=== PATIENT | female | born 1965 | race American Indian/Alaskan Native ===

== ENCOUNTER 2017-02-03 23:06 | Emergency (ER) | payer SELFPAY ==
[2017-02-04 00:24] LABS: Basophils % (Auto) 0.7 % (0.0-1.8); Eosinophils % (Auto) 3.5 % (0.0-4.3); Hematocrit 37.4 % (30.3-42.9); Hemoglobin 12.6 gm/dl (10.1-14.3); Mean Corpuscular HGB Conc 34 % (30-34); Mean Corpuscular Hemoglobin 28 pg (28-32); Mean Corpuscular Volume 83 fl (79-97); Platelet Count 257 K/mm3 (140-440); Red Blood Count 4.51 M/mm3 (3.65-5.03); Red Cell Distribution Width 14.2 % (13.2-15.2); White Blood Count 7.5 K/mm3 (4.5-11.0)
[2017-02-04 00:42] LABS: Anion Gap 15 mmol/L; Blood Urea Nitrogen 8 mg/dL (7-17); Calcium 8.8 mg/dL (8.4-10.2); Carbon Dioxide 28 mmol/L (22-30); Chloride 102.9 mmol/L (98-107); Glucose 92 mg/dL (65-100); Sodium 143 mmol/L (137-145)
[2017-02-04 00:46] LABS: Potassium 2.9 mmol/L (3.6-5.0)
[2017-02-04 01:03] LABS: Creatine Kinase 7315 units/L (30-135)
[2017-02-04 01:48] LABS: Bilirubin,Urine NEG (Negative); Blood,Urine SM (Negative); Ketones,Urine NEG (Negative); Leukocyte Esterase,Urine NEG (Negative); Nitrite,Urine NEG (Negative); Protein,Urine <15 mg/dL mg/dL (Negative); RBC,Urine < 1.0 /HPF (0.0-6.0); Urobilinogen,Urine < 2.0 mg/dL (<2.0)
[2017-02-04] MEDS ORDERED: K-DUR PO ONE (02:08)
[2017-02-04] MEDS ORDERED: KEPPRA 500 MG in D5W 100 ML IV ONE (03:58)
--- NOTE | 2017-02-04 04:06 | Emergency Department Report ---
HPI - General Chief Complaint: Seizure Time Seen by Provider: 02/04/17 02:08 - HPI HPI: patient ran out of seizure medication and had a seizure earlier today, no loss of bowel or urine, no chest pain or sob. ED Past Medical Hx - Past Medical History Previous Medical History?: Yes Hx Seizures: Yes Additional medical history: hole in heart - Surgical History Past Surgical History?: No - Social History Smoking Status: Current Some Day Smoker Substance Use Type: Alcohol, Marijuana - Medications Home Medications: Home Medications Medication Instructions Recorded Confirmed Last Taken Type Carvedilol [Coreg] 6.25 mg PO BID 02/04/17 02/04/17 02/02/17 History Lisinopril [Zestril TAB] 40 mg PO QDAY 02/04/17 02/04/17 02/02/17 History Loratadine [Claritin] 10 mg PO DAILY 02/04/17 02/04/17 02/02/17 History [place]-3 Fatty Acids/Fish Oil [Fish 1 each PO DAILY 02/04/17 02/04/17 02/02/17 History Oil 1,000 mg Softgel] Pravastatin Sodium [Pravastatin] 10 mg PO QHS 02/04/17 02/04/17 02/02/17 History amLODIPine [Norvasc] 5 mg PO DAILY 02/04/17 02/04/17 02/02/17 History levETIRAcetam [Keppra TAB] 750 mg PO BID #60 tablet 02/04/17 Unknown Rx ED Review of Systems ROS: Stated complaint: GENERAL ILLNESS Other details as noted in HPI Comment: All other systems reviewed and negative Gastrointestinal: as per HPI Neurological: other (seizures) Physical Exam - Physical Exam Vital Signs: Vital Signs 02/03/17 02/03/17 02/04/17 23:23 23:33 02:23 Temperature 97 F L 97.9 F Pulse Rate 68 68 68 Respiratory 18 18 14 Rate Blood Pressure 173/100 173/100 179/96 O2 Sat by Pulse 100 100 100 Oximetry 02/04/17 03:42 Temperature Pulse Rate 67 Respiratory 20 Rate Blood Pressure 169/79 O2 Sat by Pulse 100 Oximetry Physical Exam: GENERAL: The patient is well-developed well-nourished [] HEENT: Normocephalic. Atraumatic. Extraocular motions are intact. Patient has moist mucous membranes. NECK: Supple. No meningitic signs are noted. There is no adenopathy noted. CHEST/LUNGS: Clear to auscultation. There is no respiratory distress noted. HEART/CARDIOVASCULAR: Regular. There is no tachycardia. There is no gallop rub or murmur. ABDOMEN: Abdomen is soft, nontender. Patient has normal bowel sounds. There is no abdominal distention. SKIN: There is no rash. There is no edema. There is no diaphoresis. NEURO: The patient is awake, alert, and oriented. The patient is cooperative. The patient has no focal neurologic deficits. The patient has normal speech. Cranial nerves II through XII grossly intact, no drift. Moves all extremities well MUSCULOSKELETAL: There is no evidence of acute injury. ED Course Vital Signs 02/03/17 02/03/17 02/04/17 23:23 23:33 02:23 Temperature 97 F L 97.9 F Pulse Rate 68 68 68 Respiratory 18 18 14 Rate Blood Pressure 173/100 173/100 179/96 O2 Sat by Pulse 100 100 100 Oximetry 02/04/17 03:42 Temperature Pulse Rate 67 Respiratory 20 Rate Blood Pressure 169/79 O2 Sat by Pulse 100 Oximetry ED Medical Decision Making - Lab Data Result diagrams: 02/03/17 23:58 02/03/17 23:58 Critical care attestation.: If time is entered above; I have spent that time in minutes in the direct care of this critically ill patient, excluding procedure time. ED Disposition Clinical Impression: Seizure disorder Disposition: DC-01 TO HOME OR SELFCARE Is pt being admited?: No Does the pt Need Aspirin: No Condition: Stable Prescriptions: levETIRAcetam [Keppra TAB] 750 mg PO BID #60 tablet Referrals: DELMER MENDES MD [Primary Care Provider] - 3-5 Days PJ SOUZA MD [Staff Physician] - 3-5 Days
[2017-02-04 05:32] VITALS: BP 161/70
== END 2017-02-04 05:32 | disposition home or self-care (01) ==
LOC: ED 23:06
DX: G40.909 Epilepsy, unspecified, not intractable, without status epilepticus (principal); F17.210 Nicotine dependence, cigarettes, uncomplicated; F12.10 Cannabis abuse, uncomplicated
CPT/HCPCS: 36415; 80048; 81001; 82550; 82962; 84484; 84703; 85025; 93005; 93010; 96365; 99284; J1953

== ENCOUNTER 2017-02-06 08:01 | Emergency (ER) | payer SELFPAY ==
[2017-02-06] MEDS ORDERED: KEPPRA 1,000 MG/NS 0.75% 100ML 1,000 MG/100 ML BAG IV ONE (09:53)
[2017-02-06 11:03] LABS: Basophils % (Auto) 1.1 % (0.0-1.8); Eosinophils % (Auto) 4.3 % (0.0-4.3); Hematocrit 39.4 % (30.3-42.9); Mean Corpuscular HGB Conc 33 % (30-34); Mean Corpuscular Hemoglobin 28 pg (28-32); Mean Corpuscular Volume 84 fl (79-97); Platelet Count 210 K/mm3 (140-440); Red Cell Distribution Width 14.3 % (13.2-15.2); White Blood Count 5.5 K/mm3 (4.5-11.0)
[2017-02-06 11:28] LABS: Anion Gap 16 mmol/L; Blood Urea Nitrogen 7 mg/dL (7-17); Calcium 8.5 mg/dL (8.4-10.2); Carbon Dioxide 24 mmol/L (22-30); Chloride 103.1 mmol/L (98-107); Glucose 83 mg/dL (65-100); Potassium 3.9 mmol/L (3.6-5.0); Sodium 139 mmol/L (137-145)
--- NOTE | 2017-02-06 12:35 | Emergency Department Report ---
ED Seizure HPI - General Chief Complaint: Seizure Stated Complaint: SEIZURE Time Seen by Provider: 02/06/17 09:51 Source: patient, EMS Mode of arrival: Stretcher Limitations: No Limitations - History of Present Illness Initial Comments: 51 yo Female with a past medical history of asthma, hypertension, and seizures presented to the hospital status post seizure. Patient was found on the ground seizing our files. Patient was just here on February 04 was prescribed Keppra 750 twice a day. Patient did not fill the prescription because she did not have the money. She states she was receiving her medications for free when she goes back and forth to [place]. No physical complaints at this time. Patient is alert and oriented 3. No pulsatile laceration. - Related Data Home Medications Medication Instructions Recorded Confirmed Last Taken Carvedilol [Coreg] 6.25 mg PO BID 02/04/17 02/06/17 02/02/17 Lisinopril [Zestril TAB] 40 mg PO QDAY 02/04/17 02/06/17 02/02/17 Loratadine [Claritin] 10 mg PO DAILY 02/04/17 02/06/17 02/02/17 [place]-3 Fatty Acids/Fish Oil [Fish 1 each PO DAILY 02/04/17 02/06/17 02/02/17 Oil 1,000 mg Softgel] Pravastatin Sodium [Pravastatin] 10 mg PO QHS 02/04/17 02/06/17 02/02/17 amLODIPine [Norvasc] 5 mg PO DAILY 02/04/17 02/06/17 02/02/17 Previous Rx's Medication Instructions Recorded Last Taken Type RX: levETIRAcetam [Keppra TAB] 750 mg PO BID #60 tablet 02/04/17 Unknown Rx Allergies Allergy/AdvReac Type Severity Reaction Status Date / Time No Known Allergies Allergy Verified 02/06/17 08:54 ED Review of Systems ROS: Stated complaint: SEIZURE Other details as noted in HPI Comment: All other systems reviewed and negative Other: Constitutional: No fevers chills Eyes: No eye pain. Left subconjunctival hemorrhage from recent seizure. ENT: No ear pain or throat pain Neck: Denies pain Respiratory: Denies cough wheezing shortness of breath Cardiovascular: Denies chest pain, palpitations, syncope GI: Denies abdominal pain, nausea, vomiting, diarrhea : Denies dysuria Musculoskeletal: Denies back pain Skin: Denies rash, lesions, erythema Neurologic: Denies headache, numbness, weakness Psychiatric: Denies suicidal ideation, hallucinations ED Past Medical Hx - Past Medical History Previous Medical History?: Yes Hx Hypertension: Yes Hx Seizures: Yes Hx Asthma: Yes Additional medical history: hole in heart - Surgical History Past Surgical History?: No - Social History Smoking Status: Former Smoker Substance Use Type: Alcohol - Medications Home Medications: Home Medications Medication Instructions Recorded Confirmed Last Taken Type Carvedilol [Coreg] 6.25 mg PO BID 02/04/17 02/06/17 02/02/17 History Lisinopril [Zestril TAB] 40 mg PO QDAY 02/04/17 02/06/17 02/02/17 History Loratadine [Claritin] 10 mg PO DAILY 02/04/17 02/06/17 02/02/17 History [place]-3 Fatty Acids/Fish Oil [Fish 1 each PO DAILY 02/04/17 02/06/17 02/02/17 History Oil 1,000 mg Softgel] Pravastatin Sodium [Pravastatin] 10 mg PO QHS 02/04/17 02/06/17 02/02/17 History RX: levETIRAcetam [Keppra TAB] 750 mg PO BID #60 tablet 02/04/17 02/06/17 Unknown Rx amLODIPine [Norvasc] 5 mg PO DAILY 02/04/17 02/06/17 02/02/17 History ED Physical Exam - General Limitations: No Limitations - Other Other exam information: General: No limitations, patient is alert in no acute distress Head exam: Dark discoloration/bruising to left inferior orbital area from recent seizure/fall injury Eyes exam: Left eye lateral subconjunctival hemorrhage from recent previous seizure/fall injury. Pupils equally responsive to light ENT: Moist mucous membrane, normal oropharynx Neck exam: Normal inspection, full range of motion, no meningismus nontender Respiratory exam: Clear to auscultation bilateral, no wheezes, rales, crackles Cardiovascular: Normal rate and rhythm, normal heart sounds Abdomen: Soft, nondistended, and nontender, with normal bowel sounds, no rebound, or guarding Extremity: Full range of motion normal inspection no deformity Back: Normal Inspection, full range of motion, no tenderness Neurologic: Alert, oriented x3, cranial nerves intact, no motor or sensory deficit Psychiatric: normal affect, normal mood Skin: Warm, dry, intact ED Course Vital Signs 02/06/17 02/06/17 02/06/17 08:45 08:47 08:49 Temperature 97.8 F Pulse Rate 65 Respiratory 16 Rate Blood Pressure 162/92 162/92 Blood Pressure 162/92 [Left] O2 Sat by Pulse 99 100 99 Oximetry 02/06/17 02/06/17 02/06/17 08:51 08:53 08:55 Temperature Pulse Rate Respiratory Rate Blood Pressure 162/92 162/92 162/92 Blood Pressure [Left] O2 Sat by Pulse 100 100 99 Oximetry 02/06/17 02/06/17 02/06/17 08:57 08:59 09:00 Temperature Pulse Rate 63 Respiratory 14 Rate Blood Pressure 162/92 162/92 156/94 Blood Pressure [Left] O2 Sat by Pulse 98 99 99 Oximetry 02/06/17 02/06/17 02/06/17 09:01 09:03 09:05 Temperature Pulse Rate 60 56 L 63 Respiratory 17 13 16 Rate Blood Pressure 156/94 156/94 156/94 Blood Pressure [Left] O2 Sat by Pulse 100 98 97 Oximetry 02/06/17 02/06/17 02/06/17 09:07 09:09 09:11 Temperature Pulse Rate 61 61 61 Respiratory 15 15 16 Rate Blood Pressure 156/94 156/94 156/94 Blood Pressure [Left] O2 Sat by Pulse 97 98 97 Oximetry 02/06/17 02/06/17 02/06/17 09:13 09:15 09:17 Temperature Pulse Rate 61 61 61 Respiratory 15 14 16 Rate Blood Pressure 156/94 156/94 156/94 Blood Pressure [Left] O2 Sat by Pulse 97 98 99 Oximetry 02/06/17 02/06/17 02/06/17 09:19 09:21 09:23 Temperature Pulse Rate 61 54 L 56 L Respiratory 16 15 14 Rate Blood Pressure 156/94 156/94 156/94 Blood Pressure [Left] O2 Sat by Pulse 98 98 97 Oximetry 02/06/17 02/06/17 02/06/17 09:25 09:27 09:29 Temperature Pulse Rate 58 L 57 L 58 L Respiratory 17 17 16 Rate Blood Pressure 156/94 156/94 156/94 Blood Pressure [Left] O2 Sat by Pulse 97 97 97 Oximetry 02/06/17 02/06/17 02/06/17 09:31 09:33 09:35 Temperature Pulse Rate 58 L 58 L 58 L Respiratory 16 16 14 Rate Blood Pressure 156/94 156/94 156/94 Blood Pressure [Left] O2 Sat by Pulse 98 98 97 Oximetry 02/06/17 02/06/17 02/06/17 09:37 09:39 09:41 Temperature Pulse Rate 60 60 57 L Respiratory 16 16 16 Rate Blood Pressure 156/94 156/94 156/94 Blood Pressure [Left] O2 Sat by Pulse 97 97 97 Oximetry 02/06/17 02/06/17 02/06/17 09:43 09:45 09:47 Temperature Pulse Rate 57 L 58 L 59 L Respiratory 15 16 16 Rate Blood Pressure 156/94 156/94 156/94 Blood Pressure [Left] O2 Sat by Pulse 98 98 97 Oximetry 02/06/17 02/06/17 02/06/17 09:49 09:50 09:51 Temperature Pulse Rate 59 L 59 L 60 Respiratory 16 16 15 Rate Blood Pressure 156/94 156/94 Blood Pressure [Left] O2 Sat by Pulse 97 97 98 Oximetry 02/06/17 02/06/17 02/06/17 09:53 09:55 09:57 Temperature Pulse Rate 64 69 65 Respiratory 17 16 16 Rate Blood Pressure 156/94 156/94 156/94 Blood Pressure [Left] O2 Sat by Pulse 97 97 97 Oximetry 02/06/17 02/06/17 02/06/17 09:59 10:00 10:01 Temperature Pulse Rate 61 59 L 60 Respiratory 14 16 16 Rate Blood Pressure 156/94 143/85 143/85 Blood Pressure [Left] O2 Sat by Pulse 98 97 98 Oximetry 02/06/17 02/06/17 02/06/17 10:03 10:04 10:05 Temperature Pulse Rate 60 60 61 Respiratory 16 16 16 Rate Blood Pressure 143/85 143/85 143/85 Blood Pressure 156/94 [Left] O2 Sat by Pulse 99 98 97 Oximetry 02/06/17 02/06/17 02/06/17 10:07 10:09 10:11 Temperature Pulse Rate 65 70 66 Respiratory 12 17 14 Rate Blood Pressure 143/85 143/85 143/85 Blood Pressure [Left] O2 Sat by Pulse 97 98 98 Oximetry 02/06/17 10:13 Temperature Pulse Rate 64 Respiratory 15 Rate Blood Pressure 143/85 Blood Pressure [Left] O2 Sat by Pulse 98 Oximetry ED Medical Decision Making - Lab Data Result diagrams: 02/06/17 10:09 02/06/17 10:09 Lab Results 02/06/17 02/06/17 02/06/17 Range/Units 09:19 10:09 10:09 WBC 5.5 (4.5-11.0) K/mm3 RBC 4.70 (3.65-5.03) M/mm3 Hgb 13.0 (10.1-14.3) gm/dl Hct 39.4 (30.3-42.9) % MCV 84 (79-97) fl MCH 28 (28-32) pg MCHC 33 (30-34) % RDW 14.3 (13.2-15.2) % Plt Count 210 (140-440) K/mm3 Lymph % (Auto) 14.2 (13.4-35.0) % [place] % (Auto) 8.3 H (0.0-7.3) % Eos % (Auto) 4.3 (0.0-4.3) % Baso % (Auto) 1.1 (0.0-1.8) % Lymph # 0.8 L (1.2-5.4) K/mm3 [place] # 0.5 (0.0-0.8) K/mm3 Eos # 0.2 (0.0-0.4) K/mm3 Baso # 0.1 (0.0-0.1) K/mm3 Seg Neutrophils % 72.1 H (40.0-70.0) % Seg Neutrophils # 4.0 (1.8-7.7) K/mm3 Sodium 139 (137-145) mmol/L Potassium 3.9 D (3.6-5.0) mmol/L Chloride 103.1 (98-107) mmol/L Carbon Dioxide 24 (22-30) mmol/L Anion Gap 16 mmol/L BUN 7 (7-17) mg/dL Creatinine 0.5 L (0.7-1.2) mg/dL Estimated GFR > 60 ml/min BUN/Creatinine Ratio 14.00 % Glucose 83 (65-100) mg/dL POC Glucose 91 (70-105) Calcium 8.5 (8.4-10.2) mg/dL Magnesium 1.80 (1.7-2.3) mg/dL Critical Care Time: No Critical care attestation.: If time is entered above; I have spent that time in minutes in the direct care of this critically ill patient, excluding procedure time. ED Disposition Clinical Impression: Seizure disorder, Noncompliance with medication regimen Disposition: TO HOME OR SELFCARE Is pt being admited?: No Does the pt Need Aspirin: No Condition: Stable Instructions: Recurrent Seizures Adult (ED) Additional Instructions: Fill your Keppra Prescription. Use the discount coupon card provided to make a medication more affordable. Return is symptoms worsen. Follow up with either neurologist provider or neurologist of your choice. Referrals: ERIC BLANCHARD MD [Staff Physician] - 3-5 Days GEOFF RUEDA MD [Staff Physician] - 3-5 Days Time of Disposition: 12:41
[2017-02-06 12:46] VITALS: BP 130/82
== END 2017-02-06 12:58 | disposition home or self-care (01) ==
LOC: ED 08:01
DX: G40.909 Epilepsy, unspecified, not intractable, without status epilepticus (principal); Z91.14 Patient's other noncompliance with medication regimen; J45.909 Unspecified asthma, uncomplicated; Z87.891 Personal history of nicotine dependence
CPT/HCPCS: 36415; 80048; 82962; 83735; 85025; 96365; 99284; J1953

== ENCOUNTER 2017-07-20 10:39 | Emergency (ER) | payer OTHER ==
[2017-07-20] MEDS ORDERED: KEPPRA 1,000 MG/NS 0.75% 100ML 1,000 MG/100 ML BAG IV ONE (13:20)
[2017-07-20 14:26] LABS: BUN/Creatinine Ratio 22; Blood Urea Nitrogen 11 mg/dL (7-17); Calcium 8.5 mg/dL (8.4-10.2); Hemolysis Index 16
[2017-07-20 14:35] LABS: Basophils # (Auto) 0.1 K/mm3 (0.0-0.1); Basophils % (Auto) 1.4 % (0.0-1.8); Eosinophils # (Auto) 0.1 K/mm3 (0.0-0.4); Eosinophils % (Auto) 1.7 % (0.0-4.3); Hemoglobin 12.4 gm/dl (10.1-14.3); Lymphocytes # (Auto) 0.8 K/mm3 (1.2-5.4); Lymphocytes % (Auto) 15.4 % (13.4-35.0); Mean Corpuscular HGB Conc 33 % (30-34); Mean Corpuscular Hemoglobin 28 pg (28-32); Mean Corpuscular Volume 84 fl (79-97); Monocytes # (Auto) 0.3 K/mm3 (0.0-0.8); Monocytes % (Auto) 6.2 % (0.0-7.3); Platelet Count 292 K/mm3 (140-440); Red Blood Count 4.41 M/mm3 (3.65-5.03); Red Cell Distribution Width 14.3 % (13.2-15.2)
--- NOTE | 2017-07-20 14:52 | Emergency Department Report ---
ED General Adult HPI - General Chief complaint: Seizure Stated complaint: SEIZURE Time Seen by Provider: 07/20/17 13:13 Source: patient, EMS Mode of arrival: Stretcher Limitations: No Limitations - History of Present Illness Initial comments: The patient admits noncompliance with her Keppra. She has been out for some time. In fact she had another seizure 5 days ago but did not seek medical attention. She states that she still does have her high blood pressure medicine. She presents to the emergency department with a bottle of lisinopril and amlodipine. She had a single seizure prior to arrival. She reports that this did not result in injury. There's been no neurological change. She is still slightly drowsy but able to answer questions well. She denies any headache. -: Gradual Severity scale (0 -10): 0 Consistency: now resolved Improves with: none Worsens with: none Associated Symptoms: denies other symptoms Treatments Prior to Arrival: none - Related Data Home Medications Medication Instructions Recorded Confirmed Last Taken Carvedilol [Coreg] 6.25 mg PO BID 02/04/17 02/06/17 02/02/17 Loratadine [Claritin] 10 mg PO DAILY 02/04/17 02/06/17 02/02/17 [place]-3 Fatty Acids/Fish Oil [Fish 1 each PO DAILY 02/04/17 02/06/17 02/02/17 Oil 1,000 mg Softgel] Pravastatin Sodium [Pravastatin] 10 mg PO QHS 02/04/17 02/06/17 02/02/17 Previous Rx's Medication Instructions Recorded Last Taken Type Lisinopril [Zestril TAB] 40 mg PO QDAY #30 tablet 07/20/17 Unknown Rx amLODIPine [Norvasc] 5 mg PO DAILY #30 tablet 07/20/17 Unknown Rx levETIRAcetam [Keppra TAB] 750 mg PO BID #60 tablet 07/20/17 Unknown Rx Allergies Allergy/AdvReac Type Severity Reaction Status Date / Time No Known Allergies Allergy Verified 02/06/17 08:54 ED Review of Systems ROS: Stated complaint: SEIZURE Other details as noted in HPI Constitutional: denies: chills, fever Eyes: denies: eye pain, eye discharge, vision change ENT: denies: ear pain, throat pain Respiratory: denies: cough, shortness of breath, wheezing Cardiovascular: denies: chest pain, palpitations Endocrine: no symptoms reported Gastrointestinal: denies: abdominal pain, nausea, diarrhea Genitourinary: denies: urgency, dysuria, discharge Musculoskeletal: denies: back pain, joint swelling, arthralgia Skin: denies: rash, lesions Neurological: as per HPI. denies: headache, weakness Psychiatric: denies: anxiety, depression Hematological/Lymphatic: denies: easy bleeding, easy bruising ED Past Medical Hx - Past Medical History Previous Medical History?: Yes Hx Hypertension: Yes Hx Seizures: Yes Hx Asthma: Yes Additional medical history: hole in heart - Surgical History Past Surgical History?: No - Social History Smoking Status: Current Some Day Smoker Substance Use Type: Alcohol - Medications Home Medications: Home Medications Medication Instructions Recorded Confirmed Last Taken Type Carvedilol [Coreg] 6.25 mg PO BID 02/04/17 02/06/17 02/02/17 History Loratadine [Claritin] 10 mg PO DAILY 02/04/17 02/06/17 02/02/17 History [place]-3 Fatty Acids/Fish Oil [Fish 1 each PO DAILY 02/04/17 02/06/17 02/02/17 History Oil 1,000 mg Softgel] Pravastatin Sodium [Pravastatin] 10 mg PO QHS 02/04/17 02/06/17 02/02/17 History Lisinopril [Zestril TAB] 40 mg PO QDAY #30 tablet 07/20/17 Unknown Rx amLODIPine [Norvasc] 5 mg PO DAILY #30 tablet 07/20/17 Unknown Rx levETIRAcetam [Keppra TAB] 750 mg PO BID #60 tablet 07/20/17 Unknown Rx ED Physical Exam - General Limitations: No Limitations General appearance: alert, in no apparent distress - Head Head exam: Present: atraumatic, normocephalic - Eye Eye exam: Present: normal appearance, PERRL, EOMI. Absent: scleral icterus - ENT ENT exam: Present: mucous membranes moist - Neck Neck exam: Present: normal inspection - Respiratory Respiratory exam: Present: normal lung sounds bilaterally. Absent: respiratory distress - Cardiovascular Cardiovascular Exam: Present: regular rate, normal rhythm. Absent: systolic murmur, diastolic murmur, rubs, gallop - GI/Abdominal GI/Abdominal exam: Present: soft, normal bowel sounds. Absent: distended, tenderness, guarding, rebound, rigid - Extremities Exam Extremities exam: Present: normal inspection - Back Exam Back exam: Present: normal inspection - Neurological Exam Neurological exam: Present: alert, oriented X3, CN II-XII intact. Absent: motor sensory deficit - Psychiatric Psychiatric exam: Present: normal affect, normal mood - Skin Skin exam: Present: warm, dry, intact, normal color. Absent: rash ED Course Vital Signs 07/20/17 12:47 Temperature 98.1 F Pulse Rate 60 Respiratory 16 Rate Blood Pressure 160/92 O2 Sat by Pulse 100 Oximetry - Reevaluation(s) Reevaluation #1: Patient was loaded with a gram of Her. She is observed. She had no further seizure activity or signs of any neurological compromise. She is appropriate for outpatient management and follow-up. She'll be continued on her Keppra. 07/20/17 14:53 ED Medical Decision Making - Lab Data Result diagrams: 07/20/17 13:55 07/20/17 13:55 Laboratory Results - last 24 hr 07/20/17 07/20/17 13:55 13:55 WBC 5.5 RBC 4.41 Hgb 12.4 Hct 37.0 MCV 84 MCH 28 MCHC 33 RDW 14.3 Plt Count 292 Lymph % (Auto) 15.4 [place] % (Auto) 6.2 Eos % (Auto) 1.7 Baso % (Auto) 1.4 Lymph # 0.8 L [place] # 0.3 Eos # 0.1 Baso # 0.1 Seg Neutrophils % 75.3 H Seg Neutrophils # 4.1 Sodium 139 Potassium 4.1 Chloride 103.1 Carbon Dioxide 22 Anion Gap 18 BUN 11 Creatinine 0.5 L Estimated GFR > 60 BUN/Creatinine Ratio 22 Glucose 73 Calcium 8.5 Critical care attestation.: If time is entered above; I have spent that time in minutes in the direct care of this critically ill patient, excluding procedure time. ED Disposition Clinical Impression: Seizure, Seizure disorder, Essential hypertension Disposition: - TO HOME OR SELFCARE Is pt being admited?: No Does the pt Need Aspirin: No Condition: Stable Instructions: Epilepsy (ED), Hypertension (ED) Additional Instructions: Do not drive. Rx Keppra. Follow-up on your high blood pressure and your seizure disorder. I give you the information about a local clinic and neurologist. Prescriptions: amLODIPine [Norvasc] 5 mg PO DAILY #30 tablet levETIRAcetam [Keppra TAB] 750 mg PO BID #60 tablet Lisinopril [Zestril TAB] 40 mg PO QDAY #30 tablet Referrals: PRIMARY CARE, [Primary Care Provider] - 3-5 Days GEOFF RUEDA MD [Staff Physician] - 3-5 Days [facility] [Provider Group] - 3-5 Days Time of Disposition: 14:55
[2017-07-20 16:15] VITALS: BP 187/89
== END 2017-07-20 16:16 | disposition home or self-care (01) ==
LOC: ED 10:39
DX: G40.909 Epilepsy, unspecified, not intractable, without status epilepticus (principal); I10 Essential (primary) hypertension
CPT/HCPCS: 36415; 80048; 85025; 96374; 99284; J1953

== ENCOUNTER 2017-09-01 19:41 | Emergency (ER) | payer SELFPAY ==
[2017-09-01 19:57] VITALS: BP 162/80
[2017-09-01] MEDS ORDERED: KEPPRA 1,000 MG/NS 0.75% 100ML 1,000 MG/100 ML BAG IV ONE (20:09)
[2017-09-01 20:38] LABS: Basophils % (Auto) 0.4 % (0.0-1.8); Eosinophils # (Auto) 0.1 K/mm3 (0.0-0.4); Eosinophils % (Auto) 0.7 % (0.0-4.3); Hematocrit 41.4 % (30.3-42.9); Hemoglobin 13.9 gm/dl (10.1-14.3); Lymphocytes # (Auto) 1.1 K/mm3 (1.2-5.4); Lymphocytes % (Auto) 9.1 % (13.4-35.0); Mean Corpuscular HGB Conc 34 % (30-34); Mean Corpuscular Hemoglobin 28 pg (28-32); Mean Corpuscular Volume 83 fl (79-97); Monocytes # (Auto) 0.4 K/mm3 (0.0-0.8); Monocytes % (Auto) 3.1 % (0.0-7.3); Platelet Count 320 K/mm3 (140-440); Red Cell Distribution Width 14.6 % (13.2-15.2)
[2017-09-01 20:50] LABS: BUN/Creatinine Ratio 13; Blood Urea Nitrogen 9 mg/dL (7-17); Calcium 8.6 mg/dL (8.4-10.2); Hemolysis Index 14
[2017-09-01] MEDS ORDERED: K-DUR PO ONE (21:22)
--- NOTE | 2017-09-01 21:22 | Emergency Department Report ---
ED Seizure HPI - General Chief Complaint: Seizure Stated Complaint: SEIZURE Time Seen by Provider: 09/01/17 20:09 Source: patient Mode of arrival: Stretcher Limitations: No Limitations - History of Present Illness Initial Comments: 52-year-old female with a past medical history seizures and hypertension presents to the hospital status post seizure while riding the bus. She had no preceding symptoms. Woke up in route to the hospital. Denies tongue laceration or urinary incontinence. No pain reported. Patient's been noncompliant with her for the past day and a half. She has refills or prescriptions but is waiting to collect enough money to be able to afford her prescriptions. - Related Data Home Medications Medication Instructions Recorded Confirmed Last Taken Carvedilol [Coreg] 6.25 mg PO BID 02/04/17 02/06/17 02/02/17 Loratadine [Claritin] 10 mg PO DAILY 02/04/17 02/06/17 02/02/17 Stebbins-3 Fatty Acids/Fish Oil [Fish 1 each PO DAILY 02/04/17 02/06/17 02/02/17 Oil 1,000 mg Softgel] Pravastatin Sodium [Pravastatin] 10 mg PO QHS 02/04/17 02/06/17 02/02/17 Previous Rx's Medication Instructions Recorded Last Taken Type Lisinopril [Zestril TAB] 40 mg PO QDAY #30 tablet 07/20/17 Unknown Rx amLODIPine [Norvasc] 5 mg PO DAILY #30 tablet 07/20/17 Unknown Rx levETIRAcetam [Keppra TAB] 750 mg PO BID #60 tablet 09/01/17 Unknown Rx Allergies Allergy/AdvReac Type Severity Reaction Status Date / Time No Known Allergies Allergy Verified 02/06/17 08:54 ED Review of Systems ROS: Stated complaint: SEIZURE Other details as noted in HPI Comment: All other systems reviewed and negative ED Past Medical Hx - Past Medical History Hx Hypertension: Yes Hx Seizures: Yes Hx Asthma: Yes Additional medical history: hole in heart - Surgical History Past Surgical History?: No - Social History Smoking Status: Current Some Day Smoker Substance Use Type: Alcohol, Marijuana - Medications Home Medications: Home Medications Medication Instructions Recorded Confirmed Last Taken Type Carvedilol [Coreg] 6.25 mg PO BID 02/04/17 02/06/17 02/02/17 History Loratadine [Claritin] 10 mg PO DAILY 02/04/17 02/06/17 02/02/17 History Stebbins-3 Fatty Acids/Fish Oil [Fish 1 each PO DAILY 02/04/17 02/06/17 02/02/17 History Oil 1,000 mg Softgel] Pravastatin Sodium [Pravastatin] 10 mg PO QHS 02/04/17 02/06/17 02/02/17 History Lisinopril [Zestril TAB] 40 mg PO QDAY #30 tablet 07/20/17 Unknown Rx amLODIPine [Norvasc] 5 mg PO DAILY #30 tablet 07/20/17 Unknown Rx levETIRAcetam [Keppra TAB] 750 mg PO BID #60 tablet 09/01/17 Unknown Rx ED Physical Exam - General Limitations: No Limitations - Other Other exam information: General: No limitations, patient is alert in no acute distress Head exam: Atraumatic, normocephalic Eyes exam: Normal appearance, pupils equal reactive to light, extraocular movements intact ENT: Moist mucous membrane, normal oropharynx Neck exam: Normal inspection, full range of motion, no meningismus nontender Respiratory exam: Clear to auscultation bilateral, no wheezes, rales, crackles Cardiovascular: Normal rate and rhythm, normal heart sounds Abdomen: Soft, nondistended, and nontender, with normal bowel sounds, no rebound, or guarding Extremity: Full range of motion normal inspection no deformity Back: Normal Inspection, full range of motion, no tenderness Neurologic: Alert, oriented x3, cranial nerves intact, no motor or sensory deficit Psychiatric: normal affect, normal mood Skin: Warm, dry, intact ED Course Vital Signs 09/01/17 19:53 Temperature 97.8 F Pulse Rate 64 Respiratory 16 Rate Blood Pressure 162/80 O2 Sat by Pulse 96 Oximetry ED Medical Decision Making - Lab Data Result diagrams: 09/01/17 20:20 09/01/17 20:20 Lab Results 09/01/17 09/01/17 Range/Units 20:20 20:20 WBC 12.6 H (4.5-11.0) K/mm3 RBC 5.00 (3.65-5.03) M/mm3 Hgb 13.9 (10.1-14.3) gm/dl Hct 41.4 (30.3-42.9) % MCV 83 (79-97) fl MCH 28 (28-32) pg MCHC 34 (30-34) % RDW 14.6 (13.2-15.2) % Plt Count 320 (140-440) K/mm3 Lymph % (Auto) 9.1 L (13.4-35.0) % [place] % (Auto) 3.1 (0.0-7.3) % Eos % (Auto) 0.7 (0.0-4.3) % Baso % (Auto) 0.4 (0.0-1.8) % Lymph # 1.1 L (1.2-5.4) K/mm3 [place] # 0.4 (0.0-0.8) K/mm3 Eos # 0.1 (0.0-0.4) K/mm3 Baso # 0.0 (0.0-0.1) K/mm3 Seg Neutrophils % 86.7 H (40.0-70.0) % Seg Neutrophils # 10.9 H (1.8-7.7) K/mm3 Sodium 140 (137-145) mmol/L Potassium 3.4 L (3.6-5.0) mmol/L Chloride 99.5 (98-107) mmol/L Carbon Dioxide 24 (22-30) mmol/L Anion Gap 20 mmol/L BUN 9 (7-17) mg/dL Creatinine 0.7 (0.7-1.2) mg/dL Estimated GFR > 60 ml/min BUN/Creatinine Ratio 13 % Glucose 77 (65-100) mg/dL Calcium 8.6 (8.4-10.2) mg/dL Magnesium 2.10 (1.7-2.3) mg/dL - Medical Decision Making Patient's seizure is likely secondary to medication noncompliance. Patient loaded with IV Keppra 1 g. No further seizure activity. Potassium provided for mild hypokalemia. Patient is in information for [employer] [facility] website and a list of more affordable pricing for her medication. - Differential Diagnosis breakthrough seizure, medication noncompliance, electrolyte abnormality Critical Care Time: No Critical care attestation.: If time is entered above; I have spent that time in minutes in the direct care of this critically ill patient, excluding procedure time. ED Disposition Clinical Impression: Seizure, Noncompliance with medication regimen, Hypokalemia, HTN (hypertension) Disposition: DC- TO HOME OR SELFCARE Is pt being admited?: No Does the pt Need Aspirin: No Condition: Stable Instructions: Epilepsy (ED), Hypertension (ED) Additional Instructions: Taking her medication as prescribed. Use the good Rx website/kulwinder/card to make your medication more affordable. Return if symptoms worsen Prescriptions: levETIRAcetam [Keppra TAB] 750 mg PO BID #60 tablet Referrals: EMERALD ISAAC MD [Primary Care Provider] - 3-5 Days [facility] [Provider Group] - 3-5 Days Time of Disposition: 21:25
== END 2017-09-01 21:37 | disposition home or self-care (01) ==
LOC: ED 19:41
DX: R56.9 Unspecified convulsions (principal); E87.6 Hypokalemia; I10 Essential (primary) hypertension; F17.200 Nicotine dependence, unspecified, uncomplicated; F12.10 Cannabis abuse, uncomplicated
CPT/HCPCS: 36415; 80048; 83735; 85025; 96374; 99284; J1953

== ENCOUNTER 2017-09-02 01:37 | Emergency (ER) | payer SELFPAY ==
[2017-09-02] MEDS ORDERED: TYLENOL PO ONE (02:06)
--- NOTE | 2017-09-02 03:22 | Cat Scan Report ---
FINAL REPORT PROCEDURE: CT HEAD/BRAIN WO CON TECHNIQUE: Computerized tomography of the head was performed without contrast material. HISTORY: headache COMPARISON: No prior studies are available for comparison. FINDINGS: Skull and scalp: Normal. Paranasal sinuses: Normal. Ventricles and subarachnoid spaces: Normal. Cerebrum: No evidence of hemorrhage, acute infarction or mass . Cerebellum and brainstem: No evidence of hemorrhage, acute infarction or mass. Vasculature: Normal. Comments: None. IMPRESSION: There is no evidence of an acute intracranial process
--- NOTE | 2017-09-02 04:57 | Emergency Department Report ---
ED Headache HPI - General Chief Complaint: Headache Stated Complaint: HEADACHE Time Seen by Provider: 09/02/17 04:54 Source: patient Exam Limitations: no limitations - History of Present Illness Initial Comments: Patient here reports that she is having an headache and back and neck pain. She says she was here earlier today after having a seizure in the [employer] and it took her by ambulance here in she woke up when she got into the emergency room and reported that she has a seizure. Patient has been referred to neurologist after being diagnosed with seizure and placed on Keppra and she said that she keeps losing the papers that she has not seen a neurologist. She said that she was never diagnosed with seizure by a neurologist that she doesn' t have any history of head injury. She has a history of high cholesterol, high blood pressure and asthma. Patient said that she doesn't need refill on medicine because she had a prescription she does have to go to [facility] to get them filled. Patient reports that she is homeless. Pain is 6 out of 10 to head neck and upper back. Denies any nausea or vomiting. Denies any cuts or bruises to her skin. Headache is located frontally. She says she doesn't remember if she hit her head. Headache comes and goes and nothing makes it better and nothing makes it worse. She said she hasn't taken any medication for headache. She did not mention headache or neck or back pain while she was in the emergency room on her first visit today. Note from today reflect patient had seizure and came by ambulance. Also note says patient was given prescriptions for Keflex and that she is noncompliant with medication and treatment plan. Timing/Duration: 4-6 hours, waxing and waning Quality: moderate (6/10), achy Head Injury Location: frontal Recent Head Trauma: occasional headaches Modifying Factors: improves with: rest Associated Symptoms: seizures (patient had episode of seizure on [employer] today and was seen in the emergency room earlier for seizure.), other (neck pain and upper back pain). denies: confusion, fatigue, facial pain, fever/ chills, flushing, loss of consciousness, nasal congestion, nasal drainage, numbness in legs/feet, rash, sinus infection, stiff neck, vision changes, weakness Allergies/Adverse Reactions: Allergies No Known Allergies Allergy (Verified 02/06/17 08:54) Home Medications: Ambulatory Orders Carvedilol [Coreg] 6.25 mg PO BID 02/04/17 Loratadine [Claritin] 10 mg PO DAILY 02/04/17 Rock-3 Fatty Acids/Fish Oil [Fish Oil 1,000 mg Softgel] 1 each PO DAILY Pravastatin Sodium [Pravastatin] 10 mg PO QHS 02/04/17 Lisinopril [Zestril TAB] 40 mg PO QDAY #30 tablet 07/20/17 amLODIPine [Norvasc] 5 mg PO DAILY #30 tablet 07/20/17 levETIRAcetam [Keppra TAB] 750 mg PO BID #60 tablet 09/01/17 Ibuprofen [Motrin] 600 mg PO Q8H PRN #9 tablet 09/02/17 ED Review of Systems ROS: Stated complaint: HEADACHE Other details as noted in HPI Comment: All other systems reviewed and negative Constitutional: no symptoms reported Eyes: denies: eye pain, eye discharge, vision change ENT: denies: ear pain, throat pain, dental pain, epistaxis, congestion Respiratory: no symptoms reported Cardiovascular: denies: chest pain, palpitations, dyspnea on exertion, orthopnea , edema, syncope, paroxysmal nocturnal dyspnea Gastrointestinal: denies: abdominal pain, nausea, vomiting, diarrhea, constipation, hematemesis, melena, hematochezia Genitourinary: denies: dysuria, hematuria Musculoskeletal: back pain. denies: joint swelling, arthralgia, myalgia Skin: denies: rash Neurological: headache. denies: weakness, numbness, paresthesias, confusion, abnormal gait, vertigo ED Past Medical Hx - Past Medical History Previous Medical History?: Yes Hx Hypertension: Yes Hx Seizures: Yes Hx Asthma: Yes Additional medical history: hole in heart - Surgical History Past Surgical History?: Yes - Family History Family history: hypertension - Social History Smoking Status: Never Smoker Substance Use Type: Marijuana - Medications Home Medications: Home Medications Medication Instructions Recorded Confirmed Last Taken Type Carvedilol [Coreg] 6.25 mg PO BID 02/04/17 02/06/17 02/02/17 History Loratadine [Claritin] 10 mg PO DAILY 02/04/17 02/06/17 02/02/17 History Rock-3 Fatty Acids/Fish Oil [Fish 1 each PO DAILY 08/02/06/17 02/02/17 History Oil 1,000 mg Softgel] Pravastatin Sodium [Pravastatin] 10 mg PO QHS 02/04/17 02/06/17 02/02/17 History Lisinopril [Zestril TAB] 40 mg PO QDAY #30 tablet 07/20/17 Unknown Rx amLODIPine [Norvasc] 5 mg PO DAILY #30 tablet 07/20/17 Unknown Rx levETIRAcetam [Keppra TAB] 750 mg PO BID #60 tablet 09/01/17 Unknown Rx Ibuprofen [Motrin] 600 mg PO Q8H PRN #9 tablet 09/02/17 Unknown Rx ED Physical Exam - General Limitations: No Limitations General appearance: alert, in no apparent distress - Head Head exam: Present: atraumatic, normocephalic, normal inspection - Expanded Head Exam Expanded Head exam: Absent: laceration, abrasion, contusion, hematoma, racoon eyes, cruz's sign, general tenderness, tenderness of temporal artery, CSF rhinorrhea , CSF otorrhea - Eye Eye exam: Present: normal appearance, PERRL, EOMI. Absent: nystagmus, periorbital swelling, periorbital tenderness Pupils: Present: normal accommodation - ENT ENT exam: Present: normal exam, normal orophraynx, mucous membranes moist - Neck Neck exam: Present: normal inspection, full ROM, other (no C-spine tenderness). Absent: tenderness, meningismus, lymphadenopathy, thyromegaly - Expanded Neck Exam Expanded Neck exam: Absent: tenderness, midline deformity, anterior neck swelling, thyroid mass, carotid bruit, tracheal deviation - Respiratory Respiratory exam: Present: normal lung sounds bilaterally. Absent: respiratory distress, chest wall tenderness - Cardiovascular Cardiovascular Exam: Present: regular rate, normal rhythm, normal heart sounds - GI/Abdominal GI/Abdominal exam: Present: soft, normal bowel sounds. Absent: distended, tenderness, guarding, rebound, rigid, organomegaly, mass, bruit, pulsatile mass , hernia - Extremities Exam Extremities exam: Present: normal inspection, full ROM, normal capillary refill , other (no clubbing, cyanosis or edema. +2 pulses all extremities. No neurovascular compromise. +5/5 strength in all extremities. No laceration, contusion or abrasion.). Absent: tenderness, pedal edema, joint swelling, calf tenderness - Back Exam Back exam: Present: normal inspection, full ROM, other (patient ambulate without any difficulties). Absent: tenderness, CVA tenderness (R), CVA tenderness (L), muscle spasm, paraspinal tenderness, vertebral tenderness, rash noted - Expanded Back Exam Expanded Back exam: Absent: saddle anesthesia Back exam: Negative Straight Leg Raising: Left, Right - Neurological Exam Neurological exam: Present: alert, oriented X3, normal gait, reflexes normal. Absent: motor sensory deficit - Expanded Neurological Exam Expanded Neurological exam: Absent: innattentive, memory loss-remote event, memory loss- recent event, ataxia, receptive aphasia, expressive aphasia, total aphasia, tremor, protecting the airway Patient oriented to: Present: person, place, time Speech: Present: fluid speech Cranial nerves: EOM's Intact: Normal, Gag Reflex: Normal, Tongue Deviation: Normal, Nystagmus: Normal, Facial Sensation: Normal Cerebellar function: Finger to Nose: Normal, Romberg: Normal Upper motor neuron: Pronator Drift: Normal, Sensory Extinction: Normal Sensory exam: Upper Extremity Light Touch: Normal, Upper Extremity Temperature: Normal, UE 2 Point Discrimination: Normal, Lower Extremity Light Touch: Normal, Lower Extremity Pin Prick: Normal, LE 2 Point Discrimination: Normal Motor strength exam: RUE: 5, LUE: 5, RLE: 5, LLE: 5 DTR: bicep (R): 2+, bicep (L): 2+, tricep (R): 2+, tricep (L): 2+, knee (R): 2+ , knee (L): 2+, ankle (R): 2+, ankle (L): 2+ Best Eye Response ([place]): (4) open spontaneously Best Motor Response ([place]): (6) obeys commands Best Verbal Response ([place]): (5) oriented [place] Total: 15 - Psychiatric Psychiatric exam: Present: normal affect, normal mood - Skin Skin exam: Present: warm, dry, intact, normal color. Absent: rash ED Course Vital Signs 09/02/17 02:05 Temperature 98.5 F Pulse Rate 84 Respiratory 20 Rate Blood Pressure 141/91 [Left] O2 Sat by Pulse 98 Oximetry - Reevaluation(s) Reevaluation #1: 09/02/17 06:22 She given Tylenol 650 mg in the ER for headache. She voiced relief of headache. ED Medical Decision Making - Radiology Data Radiology results: report reviewed CT scan of the head without contrast reveals no acute findings. - Medical Decision Making ED course: Patient's second visit within 24 hours for 2 different complaints. Initial visit today was 4 seizure in [facility] and she was seen by Dr. Parnell and released and also given prescription for Keppra which she takes for seizure. Patient was also referred to neurologist in the past and she says she didn't go because she keeps losing the paper. Patient reports that she is homeless. She said after she was discharged later on she started feeling upper back pain and neck pain with headache and she was concerned so she returned to the hospital to get rechecked. CT scan of the head revealed no acute intracranial processes. This was discussed patient. She was given Tylenol 650 mg her pain was resolved her pain. Patient is neurologically intact with normal back and neck exam. It was discussed and discharge report earlier today the patient is noncompliant with medication and treatment plan. I asked patient if she needed prescription for her lisinopril and other medication and she says she has prescription she does this about a [facility] to get them filled. I discussed the patient that she is never been diagnosed by a neurologist with seizure and she does not have any history of head injury or abnormality so she will need to follow-up with neurologists and also at some [facility] as she does not have a primary care doctor. She was given prescription junk car to help with prescriptions while she was here today. Patient's evening drinking well and discharged home in stable condition with prescription for Motrin. Lab work from today did not show any critical value some values and her CBC was slightly elevated to include white blood cell. Chemistries stable except for some slight abnormalities which were not critical. Patient drank several cups of juice in emergency room . Critical care attestation.: If time is entered above; I have spent that time in minutes in the direct care of this critically ill patient, excluding procedure time. ED Disposition Clinical Impression: Noncompliance with medication regimen, Musculoskeletal pain, Pain, upper back, Homelessness Headache Qualifiers: Headache type: unspecified Headache chronicity pattern: episodic headache Intractability: not intractable Qualified Code(s): R51 - Headache Disposition: DC-01 TO HOME OR SELFCARE Is pt being admited?: No Does the pt Need Aspirin: No Condition: Stable Instructions: Acute Headache (ED), Musculoskeletal Pain (ED) Additional Instructions: Please follow up with neurologist as recommended and referred to discharge instruction paperwork for details on phone number and address. Please take him medication as prescribed. Please follow up at [facility]. Call this morning to schedule an appointment for primary care visits for a new patient for management of chronic medical problems Take Motrin as prescribed and this will help with musculoskeletal pain. Prescriptions: Ibuprofen [Motrin] 600 mg PO Q8H PRN #9 tablet PRN Reason: Pain Referrals: [facility] [Outside] - 09/03/17 ERIC BLANCHARD MD [Staff Physician] - 09/03/17 [facility] [Outside] - 3-5 Days [facility] [Outside] - 3-5 Days [facility] [Outside] - 3-5 Days [facility] [Outside] - 3-5 Days
[2017-09-02 04:59] VITALS: BP 141/91
== END 2017-09-02 06:35 | disposition home or self-care (01) ==
LOC: ED 01:37
DX: M79.1 Myalgia (principal); M54.9 Dorsalgia, unspecified; R51 Headache; I10 Essential (primary) hypertension; J45.909 Unspecified asthma, uncomplicated; F12.10 Cannabis abuse, uncomplicated; R56.9 Unspecified convulsions; Z59.0 Homelessness; Z91.14 Patient's other noncompliance with medication regimen
CPT/HCPCS: 70450; 99283

== ENCOUNTER 2017-11-19 23:54 | Emergency (ER) | payer SELFPAY ==
[2017-11-20 04:08] LABS: Basophils # (Auto) 0.1 K/mm3 (0.0-0.1); Basophils % (Auto) 0.9 % (0.0-1.8); Eosinophils # (Auto) 0.3 K/mm3 (0.0-0.4); Eosinophils % (Auto) 3.3 % (0.0-4.3); Hematocrit 38.3 % (30.3-42.9); Hemoglobin 12.9 gm/dl (10.1-14.3); Lymphocytes # (Auto) 1.7 K/mm3 (1.2-5.4); Lymphocytes % (Auto) 21.8 % (13.4-35.0); Mean Corpuscular HGB Conc 34 % (30-34); Mean Corpuscular Hemoglobin 28 pg (28-32); Mean Corpuscular Volume 84 fl (79-97); Monocytes # (Auto) 0.7 K/mm3 (0.0-0.8); Monocytes % (Auto) 8.3 % (0.0-7.3); Platelet Count 265 K/mm3 (140-440); Red Blood Count 4.58 M/mm3 (3.65-5.03); Red Cell Distribution Width 14.7 % (13.2-15.2)
[2017-11-20 04:54] LABS: Alanine Aminotransferase 11 units/L (7-56); Albumin 4.1 g/dL (3.9-5); BUN/Creatinine Ratio 10; Blood Urea Nitrogen 7 mg/dL (7-17); Calcium 8.7 mg/dL (8.4-10.2); Hemolysis Index 32
[2017-11-20] MEDS ORDERED: TYLENOL PO ONE (12:48)
[2017-11-20] MEDS ORDERED: KEPPRA PO ONE (12:48)
--- NOTE | 2017-11-20 12:50 | Emergency Department Report ---
ED General Adult HPI - General Chief complaint: Seizure Stated complaint: SEIZURE Time Seen by Provider: 11/20/17 12:34 Source: patient, RN notes reviewed Mode of arrival: Ambulatory Limitations: No Limitations - History of Present Illness Initial comments: This is a 52-year-old female, known to this provider previously, past medical history includes seizures, hypertension, high cholesterol. Presents to the ER with a complaint of 2 complaints. Her first complaint is breakthrough seizure. She was found on the floor by family earlier on today. She thinks that she had a seizure. She reports sporadic compliance with her Keppra medication. She denies headache, neck pain, abdominal pain, patient denies focal extremity weakness or numbness, but admits to dysuria. She also reports central left- sided chest pressure which is intermittent, does not radiate anywhere, and has no exacerbating or relieving factors. She denies nausea and vomiting, and she denies issues with her breathing or shortness of breath. She denies DVT, pulmonary embolus risk factors, and she reports no recent cardiac risk stratification. -: Gradual Location: chest Severity scale (0 -10): 5 Consistency: intermittent Improves with: none Worsens with: none Associated Symptoms: confusion, chest pain, seizure, syncope (versus seizure). denies: cough, diaphoresis, fever/chills - Related Data Home Medications Medication Instructions Recorded Confirmed Last Taken Carvedilol [Coreg] 6.25 mg PO BID 02/04/17 02/06/17 02/02/17 Loratadine [Claritin] 10 mg PO DAILY 02/04/17 02/06/17 02/02/17 [place]-3 Fatty Acids/Fish Oil [Fish 1 each PO DAILY 02/04/17 02/06/17 02/02/17 Oil 1,000 mg Softgel] Pravastatin Sodium [Pravastatin] 10 mg PO QHS 02/04/17 02/06/17 02/02/17 Previous Rx's Medication Instructions Recorded Last Taken Type Lisinopril [Zestril TAB] 40 mg PO QDAY #30 tablet 07/20/17 Unknown Rx amLODIPine [Norvasc] 5 mg PO DAILY #30 tablet 07/20/17 Unknown Rx levETIRAcetam [Keppra TAB] 750 mg PO BID #60 tablet 09/01/17 Unknown Rx Ibuprofen [Motrin] 600 mg PO Q8H PRN #9 tablet 09/02/17 Unknown Rx Allergies Allergy/AdvReac Type Severity Reaction Status Date / Time No Known Allergies Allergy Verified 02/06/17 08:54 ED Review of Systems ROS: Stated complaint: SEIZURE Other details as noted in HPI Constitutional: denies: fever Eyes: denies: eye discharge ENT: denies: hearing loss Respiratory: denies: cough Cardiovascular: chest pain, syncope Gastrointestinal: denies: abdominal pain Genitourinary: dysuria Neurological: other (seizure) ED Past Medical Hx - Past Medical History Hx Hypertension: Yes Hx Seizures: Yes Hx Asthma: Yes Additional medical history: hole in heart - Surgical History Past Surgical History?: No - Social History Smoking Status: Current Some Day Smoker Substance Use Type: Marijuana - Medications Home Medications: Home Medications Medication Instructions Recorded Confirmed Last Taken Type Carvedilol [Coreg] 6.25 mg PO BID 02/04/17 02/06/17 02/02/17 History Loratadine [Claritin] 10 mg PO DAILY 02/04/17 02/06/17 02/02/17 History [place]-3 Fatty Acids/Fish Oil [Fish 1 each PO DAILY 02/04/17 02/06/17 02/02/17 History Oil 1,000 mg Softgel] Pravastatin Sodium [Pravastatin] 10 mg PO QHS 02/04/17 02/06/17 02/02/17 History Lisinopril [Zestril TAB] 40 mg PO QDAY #30 tablet 07/20/17 Unknown Rx amLODIPine [Norvasc] 5 mg PO DAILY #30 tablet 07/20/17 Unknown Rx levETIRAcetam [Keppra TAB] 750 mg PO BID #60 tablet 09/01/17 Unknown Rx Ibuprofen [Motrin] 600 mg PO Q8H PRN #9 tablet 09/02/17 Unknown Rx ED Physical Exam - General Limitations: No Limitations General appearance: alert, in no apparent distress - Head Head exam: Present: atraumatic, normocephalic - Eye Eye exam: Present: normal appearance, PERRL, EOMI, other (Extraocular movements intact. Tongue midline. No facial droop. Facial sensation intact to light touch in the V1, V2, V3 distribution bilaterally. 5 and 5 strength in 4 extremities.. Sensation is intact to light touch in 4 extremities.). Absent: nystagmus - ENT ENT exam: Present: normal exam, normal orophraynx, mucous membranes moist, normal external ear exam - Neck Neck exam: Present: normal inspection, full ROM. Absent: tenderness, meningismus - Respiratory Respiratory exam: Present: normal lung sounds bilaterally, chest wall tenderness. Absent: respiratory distress, wheezes, rales, rhonchi, stridor, decreased breath sounds - Cardiovascular Cardiovascular Exam: Present: regular rate, normal rhythm, normal heart sounds. Absent: bradycardia, tachycardia, irregular rhythm, systolic murmur, diastolic murmur, rubs, gallop - GI/Abdominal GI/Abdominal exam: Present: soft, normal bowel sounds. Absent: distended, tenderness, guarding, rebound, rigid, pulsatile mass - Extremities Exam Extremities exam: Present: normal inspection, full ROM, normal capillary refill , other (there is no palpable cord. There is a negative Homans sign.). Absent : pedal edema, joint swelling, calf tenderness - Back Exam Back exam: Present: normal inspection, full ROM. Absent: paraspinal tenderness , vertebral tenderness - Neurological Exam Neurological exam: Present: alert, oriented X3, CN II-XII intact, other ( Extraocular movements intact. Tongue midline. No facial droop. Facial sensation intact to light touch in the V1, V2, V3 distribution bilaterally. 5 and 5 strength in 4 extremities.. Sensation is intact to light touch in 4 extremities.). Absent: motor sensory deficit - Psychiatric Psychiatric exam: Present: normal affect, normal mood - Skin Skin exam: Present: warm, dry, intact, normal color. Absent: rash ED Course Vital Signs 11/20/17 11/20/17 03:17 10:30 Temperature 97.2 F L 98.7 F Pulse Rate 67 66 Respiratory 18 16 Rate Blood Pressure 179/95 189/98 O2 Sat by Pulse 98 98 Oximetry ED Medical Decision Making - Lab Data Result diagrams: 11/20/17 03:49 11/20/17 03:49 Vital Signs 11/20/17 11/20/17 11/20/17 03:17 10:30 14:37 Temperature 97.2 F L 98.7 F Pulse Rate 67 66 81 Respiratory 18 16 16 Rate Blood Pressure 179/95 189/98 Blood Pressure 165/83 [Left] O2 Sat by Pulse 98 98 95 Oximetry Lab Results 11/20/17 11/20/17 11/20/17 Range/Units 03:49 03:49 13:43 WBC 7.9 (4.5-11.0) K/mm3 RBC 4.58 (3.65-5.03) M/mm3 Hgb 12.9 (10.1-14.3) gm/dl Hct 38.3 (30.3-42.9) % MCV 84 (79-97) fl MCH 28 (28-32) pg MCHC 34 (30-34) % RDW 14.7 (13.2-15.2) % Plt Count 265 (140-440) K/mm3 Lymph % (Auto) 21.8 (13.4-35.0) % [place] % (Auto) 8.3 H (0.0-7.3) % Eos % (Auto) 3.3 (0.0-4.3) % Baso % (Auto) 0.9 (0.0-1.8) % Lymph # 1.7 (1.2-5.4) K/mm3 [place] # 0.7 (0.0-0.8) K/mm3 Eos # 0.3 (0.0-0.4) K/mm3 Baso # 0.1 (0.0-0.1) K/mm3 Seg Neutrophils % 65.7 (40.0-70.0) % Seg Neutrophils # 5.2 (1.8-7.7) K/mm3 Sodium 138 (137-145) mmol/L Potassium 3.7 (3.6-5.0) mmol/L Chloride 99.8 (98-107) mmol/L Carbon Dioxide 28 (22-30) mmol/L Anion Gap 14 mmol/L BUN 7 (7-17) mg/dL Creatinine 0.7 (0.7-1.2) mg/dL Estimated GFR > 60 ml/min BUN/Creatinine Ratio 10 % Glucose 77 (65-100) mg/dL Calcium 8.7 (8.4-10.2) mg/dL Total Bilirubin 0.40 (0.1-1.2) mg/dL AST 27 (5-40) units/L ALT 11 (7-56) units/L Alkaline Phosphatase 60 (35-129) units/L Troponin T < 0.010 (0.00-0.029) ng/mL Total Protein 6.8 (6.3-8.2) g/dL Albumin 4.1 (3.9-5) g/dL Albumin/Globulin Ratio 1.5 % Urine Bilirubin (Negative) Urine RBC (Auto) (0.0-6.0) /HPF U Epithel Cells (Auto) (0-13.0) /HPF /16/18 Range/Units 14:15 WBC (4.5-11.0) K/mm3 RBC (3.65-5.03) M/mm3 Hgb (10.1-14.3) gm/dl Hct (30.3-42.9) % MCV (79-97) fl MCH (28-32) pg MCHC (30-34) % RDW (13.2-15.2) % Plt Count (140-440) K/mm3 Lymph % (Auto) (13.4-35.0) % [place] % (Auto) (0.0-7.3) % Eos % (Auto) (0.0-4.3) % Baso % (Auto) (0.0-1.8) % Lymph # (1.2-5.4) K/mm3 [place] # (0.0-0.8) K/mm3 Eos # (0.0-0.4) K/mm3 Baso # (0.0-0.1) K/mm3 Seg Neutrophils % (40.0-70.0) % Seg Neutrophils # (1.8-7.7) K/mm3 Sodium (137-145) mmol/L Potassium (3.6-5.0) mmol/L Chloride (98-107) mmol/L Carbon Dioxide (22-30) mmol/L Anion Gap mmol/L BUN (7-17) mg/dL Creatinine (0.7-1.2) mg/dL Estimated GFR ml/min BUN/Creatinine Ratio % Glucose (65-100) mg/dL Calcium (8.4-10.2) mg/dL Total Bilirubin (0.1-1.2) mg/dL AST (5-40) units/L ALT (7-56) units/L Alkaline Phosphatase (35-129) units/L Troponin T (0.00-0.029) ng/mL Total Protein (6.3-8.2) g/dL Albumin (3.9-5) g/dL Albumin/Globulin Ratio % Urine Bilirubin Neg (Negative) Urine RBC (Auto) 3.0 (0.0-6.0) /HPF U Epithel Cells (Auto) 1.0 (0-13.0) /HPF - EKG Data -: EKG Interpreted by Ut - EKG Data 11/20/17 14:42 Sinus bradycardia, 50 bpm, left axis deviation, left ventricular hypertrophy, incomplete right bundle branch block, left anterior fascicular block, abnormal EKG, no STEMI, compared to prior EKG, nonspecific changes have taken place. Repeat EKG is unchanged. - Radiology Data Radiology results: report reviewed, image reviewed Noncontrast CT scan of the brain is negative. X-ray of the chest is negative. - Medical Decision Making Differential diagnosis, including but not limited to: Seizure, concussion, intracranial injury, acute coronary syndrome, pneumonia, pericarditis, myocarditis, GERD, Assessment and plan: 52-year-old female with 2 complaints. In terms of the patient's seizures, patient has not had a seizure in hours, she is clinically sober, has a GCS of 15, with an NIH score of 0,Patient is clinically sober at this time. The cervical spine is cleared through nexus and [place] c spine rule Laboratory studies reviewed and are unremarkable, urinalysis is pending, she is loaded with 1 g of oral Keppra. In terms of the patient's chest pain it is atypical historically but she is fairly hypertensive has a few vascular risk factors EKG is abnormal with what appears to be nonspecific changes when compared to prior, she is moderate risk by the heart score, and is not reliable to follow-up as an outpatient. The patient will therefore be admitted to the hospital for blood pressure control, and an acute coronary syndrome risk stratification. The hospital physician, Dr. Perez was presented the patient. Critical care attestation.: If time is entered above; I have spent that time in minutes in the direct care of this critically ill patient, excluding procedure time. ED Disposition Clinical Impression: Chest pain, Seizure, Elevated blood pressure reading Disposition: OP ADMIT IP TO THIS HOSP Is pt being admited?: Yes Condition: Good Instructions: Chest Pain (ED) Referrals: PRIMARY CARE, [Primary Care Provider] - 3-5 Days
--- NOTE | 2017-11-20 13:11 | Cat Scan Report ---
CT HEAD WITHOUT CONTRAST INDICATION: Seizure. COMPARISON: 09/02/2017. FINDINGS: Noncontrast head CT again demonstrates normal ventricles without acute or recent infarct, hemorrhage, mass effect or midline shift. Slight bifrontal sulcal prominence superiorly towards the vertex. No abnormal extra-axial fluid collections. Posterior fossa structures and basilar cisterns within normal limits. Symmetric eye globes. Clear paranasal sinuses and mastoid air cells. Partially empty sella. Intact calvarium. Normal overlying scalp soft tissues. Few radiopaque dental material, few missing teeth and small BB anteriorly incidentally again noted. CONCLUSION: No acute intracranial CT abnormality, as described. Thank you for the opportunity to participate in this patient's care.
--- NOTE | 2017-11-20 13:18 | XRay Report ---
CHEST 2 VIEWS INDICATION: Chest pain. COMPARISON: None similar. FINDINGS: PA and lateral chest radiographs demonstrate normal cardiomediastinal silhouette. Clear lungs. Multilevel thoracic spondylosis. CONCLUSION: No acute disease in the chest. Thank you for the opportunity to participate in this patient's care.
--- NOTE | 2017-11-20 14:22 | History and Physical Report ---
History of Present Illness Chief complaint: 52 YO Female with HTN, HLD, Seizure Disorder, Nicotine Dependence, Medication noncompliance presents to ED for evaluation. Pt states that she thinks that she had a seizure. Pt seen and evaluated in ED and found to be medically optimized without evidence of CVA, breakthrough seizure. Upon further questioning patient acknowledges that she ran out of her medication and needs a refill. Pt does not have PCP and relies on ED for refills. Pt medically optimized and back to usual stat of health. Pt discharged home and instructed to f/u pcp 3-5 days for f/u car and medication reconciliation. Past History Past Medical History: hypertension, hyperlipidemia, seizures Past Surgical History: No surgical history, Other (reviewed) Social history: single, smoking. denies: alcohol abuse, prescription drug abuse Family history: no significant family history Medications and Allergies Allergies Allergy/AdvReac Type Severity Reaction Status Date / Time No Known Allergies Allergy Verified 02/06/17 08:54 Home Medications Medication Instructions Recorded Confirmed Last Taken Type Carvedilol [Coreg] 6.25 mg PO BID 02/04/17 11/20/17 02/02/17 History Loratadine [Claritin] 10 mg PO DAILY 02/04/17 11/20/17 02/02/17 History [place]-3 Fatty Acids/Fish Oil [Fish 1 each PO DAILY 02/04/17 11/20/17 02/02/17 History Oil 1,000 mg Softgel] Pravastatin Sodium [Pravastatin] 10 mg PO QHS 02/04/17 11/20/17 02/02/17 History Lisinopril [Zestril TAB] 40 mg PO QDAY #30 tablet 07/20/17 11/20/17 Unknown Rx amLODIPine [Norvasc] 5 mg PO DAILY #30 tablet 07/20/17 11/20/17 Unknown Rx levETIRAcetam [Keppra TAB] 750 mg PO BID #60 tablet 09/01/17 11/20/17 Unknown Rx Ibuprofen [Motrin] 600 mg PO Q8H PRN #9 tablet 09/02/17 11/20/17 Unknown Rx Review of Systems Constitutional: no weight loss, no weight gain, no fever, no chills Ears, nose, mouth and throat: no ear pain, no ear discharge, no tinnitis, no decreased hearing, no nose pain Breasts: no change in shape, no swelling, no mass Cardiovascular: no chest pain, no orthopnea, no palpitations, no rapid/ irregular heart beat, no edema Respiratory: no cough, no cough with sputum, no excessive sputum, no hemoptysis , no shortness of breath, no dyspnea on exertion Gastrointestinal: no nausea, no vomiting, no diarrhea, no constipation Genitourinary Female: no pelvic pain, no flank pain, no menorrhagia, no dysuria , no urinary frequency, no urgency Rectal: no pain, no incontinence, no bleeding Musculoskeletal: no neck stiffness, no neck pain, no shooting arm pain, no arm numbness/tingling, no low back pain, no shooting leg pain Integumentary: no rash, no pruritis, no redness, no sores, no wounds Neurological: no transient paralysis, no paralysis, no weakness, no parathesias , no numbness, no tingling, no seizures, no syncope, no tremors Psychiatric: no anxiety, no memory loss, no change in sleep habits, no sleep disturbances, no change in appetite, no change in libido Endocrine: no cold intolerance, no heat intolerance, no polyphagia, no excessive thirst, no polydipsia, no polyuria, no nocturia Hematologic/Lymphatic: no easy bruising, no easy bleeding, no lymphadenopathy, no lymphedema Allergic/Immunologic: no urticaria, no allergic rhinitis, no wheezing, no persistent infections, no anaphylaxis, no angioedema Exam - Constitutional Vitals: Temp Pulse Resp BP Pulse Ox 98.7 F 66 16 189/98 98 11/20/17 10:30 11/20/17 10:30 11/20/17 10:30 11/20/17 10:30 11/20/17 10:30 General appearance: Present: no acute distress, well-nourished - EENT Eyes: Present: PERRL ENT: hearing intact, clear oral mucosa - Neck Neck: Present: supple, normal ROM - Respiratory Respiratory effort: normal Respiratory: bilateral: CTA - Cardiovascular Heart Sounds: Present: S1 & S2. Absent: rub, click - Extremities Extremities: pulses symmetrical, No edema Peripheral Pulses: within normal limits - Abdominal General gastrointestinal: Present: soft, non-tender, non-distended, normal bowel sounds Female genitourinary: Present: normal - Integumentary Integumentary: Present: clear, warm, dry - Musculoskeletal Musculoskeletal: gait normal, strength equal bilaterally - Psychiatric Psychiatric: appropriate mood/affect, intact judgment & insight - Neurologic Neurologic: CNII-XII intact, moves all extremities Results - Labs CBC & Chem 7: 11/20/17 03:49 11/20/17 03:49 Labs: Abnormal lab results 11/20/17 Range/Units 03:49 [place] % (Auto) 8.3 H (0.0-7.3) % Assessment and Plan - Patient Problems (1) HTN (hypertension) Current Visit: Yes Status: Acute Qualifiers: Hypertension type: essential hypertension Qualified Code(s): I10 - Essential (primary) hypertension Plan to address problem: Resume prehospital medication, f/u pcp 3-5 days with blood pressure log, (2) Seizure Current Visit: Yes Status: Acute Plan to address problem: resume prehospital medication, No seizure activity at this time. (3) Noncompliance Current Visit: Yes Status: Acute Plan to address problem: Pt counseled, regarding noncompliance with outpatient medications as well as need for f/u care to adjust medication.
[2017-11-20 14:37] LABS: Bilirubin,Urine NEG (Negative); Blood,Urine SM (Negative); Color,Urine Straw (Yellow); Protein,Urine <15 mg/dL mg/dL (Negative); Urobilinogen,Urine < 2.0 mg/dL (<2.0)
[2017-11-20] MEDS ORDERED: BABY ASPIRIN PO ONE (14:41)
[2017-11-20] MEDS ORDERED: NITROSTAT SL PRN (14:41)
[2017-11-20] MEDS ORDERED: NORVASC PO ONE (14:45)
[2017-11-20 14:57] LABS: Amphetamine Screen,Urine PRESUMPTIVE NEGATIVE; Benzodiazepines Screen,Urine PRESUMPTIVE NEGATIVE; Cocaine Screen,Urine PRESUMPTIVE NEGATIVE; Methadone Screen,Urine PRESUMPTIVE NEGATIVE; Opiate Screen,Urine PRESUMPTIVE NEGATIVE
[2017-11-20 15:41] LABS: Cannabinoid Screen,Urine PRESUMPTIVE POSITIVE
[2017-11-20 20:35] VITALS: BP 163/91
== END 2017-11-20 22:04 | disposition admitted as inpatient to this hospital (09) ==
LOC: ED 23:54
DX: R56.9 Unspecified convulsions (principal); R07.89 Other chest pain; R30.0 Dysuria; I10 Essential (primary) hypertension; J45.909 Unspecified asthma, uncomplicated; F17.200 Nicotine dependence, unspecified, uncomplicated; F12.10 Cannabis abuse, uncomplicated; Z79.899 Other long term (current) drug therapy
CPT/HCPCS: 36415; 70450; 71046; 80053; 80307; 81001; 82550; 83735; 83880; 84484; 85025; 85379; 93005; 93010

== ENCOUNTER 2017-11-21 04:36 | Emergency (ER) | payer SELFPAY ==
[2017-11-21] MEDS ORDERED: ASPIRIN PO ONE (05:45)
[2017-11-21 08:16] LABS: Basophils # (Auto) 0.1 K/mm3 (0.0-0.1); Basophils % (Auto) 1.5 % (0.0-1.8); Eosinophils # (Auto) 0.2 K/mm3 (0.0-0.4); Eosinophils % (Auto) 2.3 % (0.0-4.3); Hematocrit 43.5 % (30.3-42.9); Hemoglobin 14.6 gm/dl (10.1-14.3); Lymphocytes % (Auto) 14.7 % (13.4-35.0); Mean Corpuscular HGB Conc 34 % (30-34); Mean Corpuscular Hemoglobin 28 pg (28-32); Mean Corpuscular Volume 84 fl (79-97); Monocytes # (Auto) 0.6 K/mm3 (0.0-0.8); Monocytes % (Auto) 8.2 % (0.0-7.3); Platelet Count 294 K/mm3 (140-440); Red Blood Count 5.16 M/mm3 (3.65-5.03); Red Cell Distribution Width 14.6 % (13.2-15.2)
[2017-11-21 08:18] LABS: BUN/Creatinine Ratio 10; Blood Urea Nitrogen 6 mg/dL (7-17); Calcium 9.4 mg/dL (8.4-10.2); Hemolysis Index 121
--- NOTE | 2017-11-21 14:45 | Emergency Department Report ---
ED General Adult HPI - General Chief complaint: Chest Pain Stated complaint: WHEEZING; CP Time Seen by Provider: 11/21/17 14:20 Source: patient Mode of arrival: Ambulatory Limitations: No Limitations - History of Present Illness Initial comments: Patient seen yesterday for seizure evaluation she also had a chest pain evaluation, she was released by the hospitalist for outpatient follow-up, after initially being considered for admission, she is back here today after sitting in the waiting room all night so she is homeless she still has a tightness in her chest she thinks it started after she ate a hot dog. Troponin was negative yesterday EKG had no acute ischemic changes. She is requesting to talk to the social worker psychiatric about her homelessness and wants to make sure that the tightness in her chest is nothing else going on. She says it did start after she ate a hot dog. He is having constant since yesterday she denied any tearing pain she denies any nausea vomiting diarrhea no black or bloody stool no syncope no headache no neck pain no recurrent seizure. She has been taking her Keppra according to her. She's been out of her blood pressure medicine. She arrives with a systolic of 165 EKG unchanged from yesterday for evaluation of constant persistent midsternal tightness in her chest after she ate a hot dog -: days(s) Radiation: non-radiation Quality: burning, aching Consistency: constant Associated Symptoms: denies other symptoms, chest pain. denies: confusion, cough, diaphoresis, fever/chills, headaches, loss of appetite, malaise, nausea/ vomiting, rash, seizure, shortness of breath, syncope, weakness - Related Data Home Medications Medication Instructions Recorded Confirmed Last Taken Carvedilol [Coreg] 6.25 mg PO BID 02/04/17 11/20/17 02/02/17 Loratadine [Claritin] 10 mg PO DAILY 02/04/17 11/20/17 02/02/17 [place]-3 Fatty Acids/Fish Oil [Fish 1 each PO DAILY 02/04/17 11/20/17 02/02/17 Oil 1,000 mg Softgel] Pravastatin Sodium [Pravastatin] 10 mg PO QHS 02/04/17 11/20/17 02/02/17 Previous Rx's Medication Instructions Recorded Last Taken Type Lisinopril [Zestril TAB] 40 mg PO QDAY #30 tablet 07/20/17 Unknown Rx amLODIPine [Norvasc] 5 mg PO DAILY #30 tablet 07/20/17 Unknown Rx levETIRAcetam [Keppra TAB] 750 mg PO BID #60 tablet 09/01/17 Unknown Rx Ibuprofen [Motrin] 600 mg PO Q8H PRN #9 tablet 09/02/17 Unknown Rx Allergies Allergy/AdvReac Type Severity Reaction Status Date / Time No Known Allergies Allergy Verified 02/06/17 08:54 ED Review of Systems ROS: Stated complaint: WHEEZING; CP Other details as noted in HPI Comment: All other systems reviewed and negative Constitutional: malaise. denies: diaphoresis, fever Respiratory: denies: cough, orthopnea, shortness of breath, SOB with exertion, SOB at rest, stridor, wheezing Cardiovascular: chest pain. denies: palpitations, dyspnea on exertion, orthopnea, edema, syncope, paroxysmal nocturnal dyspnea Gastrointestinal: denies: abdominal pain, nausea, vomiting, diarrhea, constipation, hematemesis, melena, hematochezia Musculoskeletal: denies: back pain, joint swelling, arthralgia, myalgia Neurological: denies: headache, weakness, numbness, paresthesias, confusion, abnormal gait, vertigo Psychiatric: denies: auditory hallucinations, visual hallucinations, homicidal thoughts, suicidal thoughts ED Past Medical Hx - Past Medical History Hx Hypertension: Yes Hx Seizures: Yes Hx Asthma: Yes Additional medical history: hole in heart - Surgical History Past Surgical History?: No - Social History Smoking Status: Current Every Day Smoker Substance Use Type: None - Medications Home Medications: Home Medications Medication Instructions Recorded Confirmed Last Taken Type Carvedilol [Coreg] 6.25 mg PO BID 02/04/17 11/20/17 02/02/17 History Loratadine [Claritin] 10 mg PO DAILY 02/04/17 11/20/17 02/02/17 History [place]-3 Fatty Acids/Fish Oil [Fish 1 each PO DAILY 02/04/17 11/20/17 02/02/17 History Oil 1,000 mg Softgel] Pravastatin Sodium [Pravastatin] 10 mg PO QHS 02/04/17 11/20/17 02/02/17 History Lisinopril [Zestril TAB] 40 mg PO QDAY #30 tablet 07/20/17 11/20/17 Unknown Rx amLODIPine [Norvasc] 5 mg PO DAILY #30 tablet 07/20/17 11/20/17 Unknown Rx levETIRAcetam [Keppra TAB] 750 mg PO BID #60 tablet 09/01/17 11/20/17 Unknown Rx Ibuprofen [Motrin] 600 mg PO Q8H PRN #9 tablet 09/02/17 11/20/17 Unknown Rx ED Physical Exam - General Limitations: No Limitations General appearance: alert, in no apparent distress, anxious - Head Head exam: Present: atraumatic, normocephalic - Eye Eye exam: Present: normal appearance, PERRL, EOMI - ENT ENT exam: Present: normal exam, normal orophraynx - Neck Neck exam: Present: normal inspection. Absent: meningismus - Respiratory Respiratory exam: Present: normal lung sounds bilaterally, chest wall tenderness , other. Absent: respiratory distress (pulses equal bilaterally), wheezes, rales, rhonchi, stridor, accessory muscle use, decreased breath sounds - Cardiovascular Cardiovascular Exam: Present: regular rate, normal rhythm, normal heart sounds. Absent: bradycardia, tachycardia, irregular rhythm, systolic murmur, diastolic murmur, rubs, gallop - GI/Abdominal GI/Abdominal exam: Present: soft. Absent: distended, tenderness, guarding, rebound, rigid, mass, pulsatile mass - Extremities Exam Extremities exam: Present: normal inspection, normal capillary refill. Absent: pedal edema, joint swelling, calf tenderness - Back Exam Back exam: Present: normal inspection. Absent: CVA tenderness (L), muscle spasm , paraspinal tenderness, vertebral tenderness - Neurological Exam Neurological exam: Present: alert, oriented X3, CN II-XII intact. Absent: motor sensory deficit - Psychiatric Psychiatric exam: Present: anxious - Skin Skin exam: Present: warm. Absent: cyanosis, diaphoretic, erythema, urticaria, vesicles, petechiae ED Course Vital Signs 11/21/17 11/21/17 11/21/17 05:40 14:16 14:30 Temperature 98 F Pulse Rate 62 68 97 H Respiratory 18 19 Rate Blood Pressure 152/95 172/106 O2 Sat by Pulse 98 97 100 Oximetry ED Medical Decision Making - Lab Data Result diagrams: 11/21/17 07:54 11/21/17 14:57 - EKG Data -: EKG Interpreted by Me - EKG Data When compared to previous EKG there are: no significant change Interpretation: other (EKG unchanged from last night) - Radiology Data Radiology results: report reviewed - Medical Decision Making Patient's perc neg, Low prob wells score, chest pain is atypical recent chest pain workup last night she was felt to be atypical chest pain she was seen by the hospitalist Dr. Perez was considered for outpatient follow-up. She apparently stayed the waiting room all night did not have a place to go she is homeless symptoms are atypical no evidence of ACS at this time the well's score is low probably with a perc neg negative, the patient has no signs or symptoms would suggest an acute emergent cardiopulmonary process would require further admission or evaluation at this time. She is a full stable for outpatient follow-up she does have chronic hypertension we'll refill her amlodipine no evidence of end organ damage and would require admission at this time she is stable for outpatient follow-up of atypical chest pain she will need to make arrangements to see the social worker psychiatric regarding her homelessness she will need arrange follow-up with the doctor listed for blood pressure management and further evaluation of atypical chest pain. There is no evidence of dissection the chest x-ray did not show widened mediastinum pulses and blood pressure equal symptoms are likely GI related they did start after eating a hot dog, therefore stable for outpatient follow-up Critical care attestation.: If time is entered above; I have spent that time in minutes in the direct care of this critically ill patient, excluding procedure time. ED Disposition Clinical Impression: Atypical chest pain, Homeless, Hypertension Disposition: TO HOME OR SELFCARE Is pt being admited?: No Condition: Stable Instructions: Chest Pain (ED), Hypertension (ED) Additional Instructions: He will need to see the social worker psychiatric tomorrow on daytime hours she is not available now, he will need to go to the homeless [facility] now a list provided to , he will need to take her medications as directed we will restore your amlodipine ureter return immediately if nor alarming symptoms or call 911 you' re also to see that doctor listed or your regular doctor Referrals: DELMER MENDES MD [Primary Care Provider] - 3-5 Days EMERALD ISAAC MD [Staff Physician] - 3-5 Days Time of Disposition: 16:15
[2017-11-21 15:57] LABS: Alanine Aminotransferase 11 units/L (7-56); Albumin 4.7 g/dL (3.9-5); BUN/Creatinine Ratio 10; Blood Urea Nitrogen 5 mg/dL (7-17); Calcium 9.5 mg/dL (8.4-10.2); Hemolysis Index 9; Lipase 24 units/L (13-60)
[2017-11-21 16:12] VITALS: BP 157/82
== END 2017-11-21 16:28 | disposition home or self-care (01) ==
LOC: ED 04:36
DX: R07.89 Other chest pain (principal); I10 Essential (primary) hypertension; J45.909 Unspecified asthma, uncomplicated; F17.200 Nicotine dependence, unspecified, uncomplicated; Z59.0 Homelessness
CPT/HCPCS: 36415; 80048; 80053; 83690; 84484; 85025; 93005; 93010

== ENCOUNTER 2018-08-01 07:48 | Emergency (ER) | payer SELFPAY ==
--- NOTE | 2018-08-01 09:30 | Emergency Department Report ---
ED Chest Pain HPI - General Chief Complaint: Chest Pain Stated Complaint: CHEST/RIGHT SIDE PAIN Time Seen by Provider: 08/01/18 09:00 Source: patient Mode of arrival: Ambulatory Limitations: No Limitations - History of Present Illness Initial Comments: This is a 53-year-old female with a medical history of hypertension, high cholesterol and seizures presented with a right-sided chest pain that began 2 days ago but worsened this morning. Patient states pain is worsened with inspiration. Patient states she just expresses some tingling in his feet. She states that she has not been able to take her blood pressure medication today because she has an eating she woke up this morning. She denies blurred vision /headache MD Complaint: chest pain (right sided) -: Sudden Pain Location: right chest Pain Radiation: none Severity: moderate Severity scale (0 -10): 7 Quality: heaviness, pressure Consistency: constant Improves With: nothing re: denies: nausea, vomting Other Symptoms: denies: cough, fever Treatments Prior to Arrival: none - Related Data On Oral Contraceptives: No Home Medications Medication Instructions Recorded Confirmed Last Taken Carvedilol [Coreg] 6.25 mg PO BID 02/04/17 11/20/17 02/02/17 Loratadine [Claritin] 10 mg PO DAILY 02/04/17 11/20/17 02/02/17 [place]-3 Fatty Acids/Fish Oil [Fish 1 each PO DAILY 02/04/17 11/20/17 02/02/17 Oil 1,000 mg Softgel] Previous Rx's Medication Instructions Recorded Last Taken Type levETIRAcetam [Keppra TAB] 750 mg PO BID #60 tablet 09/01/17 Unknown Rx amLODIPine [Norvasc] 5 mg PO DAILY #15 tablet 05/06/18 Unknown Rx levETIRAcetam [Keppra TAB] 1,000 mg PO BID 15 Days #30 tab 05/06/18 Unknown Rx Ibuprofen [Motrin 600 MG tab] 600 mg PO Q8H PRN #30 tablet 08/01/18 Unknown Rx Lisinopril [Zestril TAB] 40 mg PO QDAY #30 tablet 08/01/18 Unknown Rx Pravastatin Sodium [Pravastatin] 10 mg PO QHS #30 tablet 08/01/18 Unknown Rx Allergies Allergy/AdvReac Type Severity Reaction Status Date / Time No Known Allergies Allergy Verified 02/06/17 08:54 Heart Score - HEART Score History: Moderately suspicious EKG: Non-specific Age: 45-65 Risk factors: 1-2 risk factors Troponin: < normal limit HEART Score: 4 - Critical Actions Critical Actions: 0-3 pts:0.9-1.7%risk of adverse cardiac event.Candidate for discharge ED Review of Systems ROS: Stated complaint: CHEST/RIGHT SIDE PAIN Other details as noted in HPI Comment: All other systems reviewed and negative ED Past Medical Hx - Past Medical History Hx Hypertension: Yes Hx Seizures: Yes Hx Asthma: Yes Additional medical history: hole in heart - Social History Smoking Status: Current Some Day Smoker Substance Use Type: None, Marijuana - Medications Home Medications: Home Medications Medication Instructions Recorded Confirmed Last Taken Type Carvedilol [Coreg] 6.25 mg PO BID 02/04/17 11/20/17 02/02/17 History Loratadine [Claritin] 10 mg PO DAILY 02/04/17 11/20/17 02/02/17 History [place]-3 Fatty Acids/Fish Oil [Fish 1 each PO DAILY 02/04/17 11/20/17 02/02/17 History Oil 1,000 mg Softgel] levETIRAcetam [Keppra TAB] 750 mg PO BID #60 tablet 09/01/17 11/20/17 Unknown Rx amLODIPine [Norvasc] 5 mg PO DAILY #15 tablet 05/06/18 Unknown Rx levETIRAcetam [Keppra TAB] 1,000 mg PO BID 15 Days #30 tab 05/06/18 Unknown Rx Ibuprofen [Motrin 600 MG tab] 600 mg PO Q8H PRN #30 tablet 08/01/18 Unknown Rx Lisinopril [Zestril TAB] 40 mg PO QDAY #30 tablet 08/01/18 Unknown Rx Pravastatin Sodium [Pravastatin] 10 mg PO QHS #30 tablet 08/01/18 Unknown Rx ED Physical Exam - General Limitations: No Limitations General appearance: alert, in no apparent distress - Head Head exam: Present: atraumatic, normocephalic - Eye Eye exam: Present: normal appearance - ENT ENT exam: Present: mucous membranes moist - Neck Neck exam: Present: normal inspection - Respiratory Respiratory exam: Present: normal lung sounds bilaterally. Absent: respiratory distress - Cardiovascular Cardiovascular Exam: Present: regular rate, normal rhythm. Absent: systolic murmur, diastolic murmur, rubs, gallop - GI/Abdominal GI/Abdominal exam: Present: soft, normal bowel sounds - Extremities Exam Extremities exam: Present: normal inspection - Back Exam Back exam: Present: normal inspection - Neurological Exam Neurological exam: Present: alert, oriented X3 - Psychiatric Psychiatric exam: Present: normal affect, normal mood - Skin Skin exam: Present: warm, dry, intact, normal color. Absent: rash ED Course Vital Signs 08/01/18 08/01/18 08/01/18 08:17 09:10 14:54 Temperature 98.3 F Pulse Rate 67 95 H Respiratory 16 20 16 Rate Blood Pressure 172/94 157/98 [Left] O2 Sat by Pulse 97 98 99 Oximetry PER score - Per Score Age > 65: (0) No Aspirin use within the Past 7 Days: (0) No 3 or more CAD Risk Factors: (0) No 2 or more Angina events in past 24 hrs: (0) No Known CAD with more than 50% Stenosis: (0) No Elevated Cardiac Markers: (0) No ST Deviation Greater than 0.5mm: (0) No PER Score: 0 ED Medical Decision Making - Lab Data Result diagrams: 08/01/18 09:27 08/01/18 09:27 - Radiology Data Radiology results: report reviewed, image reviewed ROUTINE CHEST, TWO VIEWS: HISTORY: chest pain. The trachea, heart, mediastinal contour, lung zhu and bony thorax are unremarkable. IMPRESSION: Unremarkable chest x-ray. No significant change since 11/20/17. Transcribed By: TTR Dictated By: MILDRED HOLLOWAY JR, MD Electronically Authenticated By: MILDRED HOLLOWAY JR, MD Signed Date/Time: 08/01/18 1112 - Medical Decision Making 53-year-old female presents with chest pain, Discussed patient's is most likely chest wall pain Vital signs are normal she is no acute distress Chest x-ray normal All labs are within normal limits negative troponin 2 Negative d-dimer. discussed the patient to follow up with machine heel builder as referred. Discussed follow-up with primary care physician. Critical care attestation.: If time is entered above; I have spent that time in minutes in the direct care of this critically ill patient, excluding procedure time. ED Disposition Clinical Impression: Chest wall pain Disposition: DC-01 TO HOME OR SELFCARE Is pt being admited?: No Does the pt Need Aspirin: No Condition: Stable Instructions: Chest Pain (ED), Costochondritis (ED) Additional Instructions: Make sure to follow up with the primary care physician as discussed. Take all your medications as you've been prescribed. If you have any worsening symptoms or develop new symptoms please return to ED immediately. Prescriptions: Pravastatin Sodium [Pravastatin] 10 mg PO QHS #30 tablet Ibuprofen [Motrin 600 MG tab] 600 mg PO Q8H PRN #30 tablet PRN Reason: Pain Lisinopril [Zestril TAB] 40 mg PO QDAY #30 tablet Referrals: MICHAEL WHITLOCK MD [Primary Care Provider] - 3-5 Days SHELBY ALMANZA MD [Staff Physician] - 3-5 Days Forms: Accompanied Note Time of Disposition: 11:39
[2018-08-01 09:42] LABS: Basophils # (Auto) 0.1 K/mm3 (0.0-0.1); Basophils % (Auto) 1.5 % (0.0-1.8); Eosinophils # (Auto) 0.2 K/mm3 (0.0-0.4); Eosinophils % (Auto) 2.4 % (0.0-4.3); Hematocrit 39.7 % (30.3-42.9); Hemoglobin 13.8 gm/dl (10.1-14.3); Lymphocytes % (Auto) 13.6 % (13.4-35.0); Mean Corpuscular HGB Conc 35 % (30-34); Mean Corpuscular Volume 84 fl (79-97); Monocytes # (Auto) 0.6 K/mm3 (0.0-0.8); Monocytes % (Auto) 8.5 % (0.0-7.3); Platelet Count 267 K/mm3 (140-440); Red Blood Count 4.74 M/mm3 (3.65-5.03); Red Cell Distribution Width 14.2 % (13.2-15.2)
[2018-08-01 10:01] LABS: BUN/Creatinine Ratio 8; Blood Urea Nitrogen 5 mg/dL (7-17); Calcium 9.5 mg/dL (8.4-10.2); Hemolysis Index 10
--- NOTE | 2018-08-01 11:15 | XRay Report ---
ROUTINE CHEST, TWO VIEWS: HISTORY: chest pain. The trachea, heart, mediastinal contour, lung zhu and bony thorax are unremarkable. IMPRESSION: Unremarkable chest x-ray. No significant change since 11/20/17.
[2018-08-01 14:56] VITALS: BP 157/98
== END 2018-08-01 14:56 | disposition home or self-care (01) ==
LOC: ED 07:48
DX: R07.89 Other chest pain (principal); I10 Essential (primary) hypertension; J45.909 Unspecified asthma, uncomplicated; F17.200 Nicotine dependence, unspecified, uncomplicated; E78.00 Pure hypercholesterolemia, unspecified
CPT/HCPCS: 36415; 71046; 80048; 82550; 84484; 85025; 85379; 93005; 93010; 99283

== ENCOUNTER 2018-12-01 20:23 | Emergency (ER) | payer OTHER ==
[2018-12-01] MEDS ORDERED: KEPPRA 1,000 MG/NS 0.75% 100ML 1,000 MG/100 ML BAG IV ONE (20:48)
--- NOTE | 2018-12-01 20:49 | Emergency Department Report ---
ED Seizure HPI - General Chief Complaint: Seizure Stated Complaint: SEIZURE Time Seen by Provider: 12/01/18 20:42 Source: patient, EMS Mode of arrival: Stretcher Limitations: No Limitations - History of Present Illness Initial Comments: Patient is a 53-year-old female that presents emergency room with complaints of multiple seizures. Patient states she has a history of seizures and has not been taking her medications for several months. Patient states she has not had a seizure 4 months until yesterday where she had 6 and 3 today. Patient denies head injury. Patient states the seizures were witnessed by her family. Patient states her family states she never hit her head and the seizures lasted for seconds. Patient states her seizures are grand mal. Patient states she was taking Keppra but is not. Patient denies any physical complaints. Patient denies chest pain. Patient has headache. Patient denies dizziness. Patient denies shortness of breath. MD Complaint: seizure -: Sudden Description of Episode: loss of consciousness, tonic-clonic movement -: second(s) Witnessed:: Yes Trauma: No Seizure History: known seizure disorder, history of non-compliance Place: home Possible Precipitating Event: stress, medication Associated Symptoms: denies: chest pain, confusion, cough, diaphoresis, fever/chills, loss of appetite, malaise, rash, shortness of breath, syncope, weakness, tongue injury, shoulder dislocation Treatments Prior to Arrival: none - Related Data Home Medications Medication Instructions Recorded Confirmed Last Taken Carvedilol [Coreg] 6.25 mg PO BID 02/04/17 11/20/17 02/02/17 Loratadine [Claritin] 10 mg PO DAILY 02/04/17 11/20/17 02/02/17 [place]-3 Fatty Acids/Fish Oil [Fish 1 each PO DAILY 02/04/17 11/20/17 02/02/17 Oil 1,000 mg Softgel] Previous Rx's Medication Instructions Recorded Last Taken Type levETIRAcetam [Keppra TAB] 750 mg PO BID #60 tablet 09/01/17 Unknown Rx amLODIPine [Norvasc] 5 mg PO DAILY #15 tablet 05/06/18 Unknown Rx Ibuprofen [Motrin 600 MG tab] 600 mg PO Q8H PRN #30 tablet 08/01/18 Unknown Rx Lisinopril [Zestril TAB] 40 mg PO QDAY #30 tablet 08/01/18 Unknown Rx Pravastatin Sodium [Pravastatin] 10 mg PO QHS #30 tablet 08/01/18 Unknown Rx levETIRAcetam [Keppra TAB] 1,000 mg PO BID 15 Days #30 tab 12/02/18 Unknown Rx Allergies Allergy/AdvReac Type Severity Reaction Status Date / Time No Known Allergies Allergy Verified 02/06/17 08:54 ED Review of Systems ROS: Stated complaint: SEIZURE Other details as noted in HPI Constitutional: denies: chills, fever Eyes: denies: eye pain, eye discharge, vision change ENT: denies: ear pain, throat pain Respiratory: denies: cough, shortness of breath, wheezing Cardiovascular: denies: chest pain, palpitations Endocrine: no symptoms reported Gastrointestinal: denies: abdominal pain, nausea, diarrhea Genitourinary: denies: urgency, dysuria, discharge Musculoskeletal: denies: back pain, joint swelling, arthralgia Skin: denies: rash, lesions Neurological: denies: headache, weakness, paresthesias Psychiatric: denies: anxiety, depression Hematological/Lymphatic: denies: easy bleeding, easy bruising ED Past Medical Hx - Past Medical History Previous Medical History?: Yes Hx Hypertension: Yes Hx Seizures: Yes Hx Asthma: Yes Additional medical history: hole in heart - Surgical History Past Surgical History?: No - Family History Family history: no significant - Social History Smoking Status: Current Some Day Smoker Substance Use Type: Marijuana - Medications Home Medications: Home Medications Medication Instructions Recorded Confirmed Last Taken Type Carvedilol [Coreg] 6.25 mg PO BID 02/04/17 11/20/17 02/02/17 History Loratadine [Claritin] 10 mg PO DAILY 02/04/17 11/20/17 02/02/17 History [place]-3 Fatty Acids/Fish Oil [Fish 1 each PO DAILY 02/04/17 11/20/17 02/02/17 History Oil 1,000 mg Softgel] levETIRAcetam [Keppra TAB] 750 mg PO BID #60 tablet 09/01/17 11/20/17 Unknown Rx amLODIPine [Norvasc] 5 mg PO DAILY #15 tablet 05/06/18 Unknown Rx Ibuprofen [Motrin 600 MG tab] 600 mg PO Q8H PRN #30 tablet 08/01/18 Unknown Rx Lisinopril [Zestril TAB] 40 mg PO QDAY #30 tablet 08/01/18 Unknown Rx Pravastatin Sodium [Pravastatin] 10 mg PO QHS #30 tablet 08/01/18 Unknown Rx levETIRAcetam [Keppra TAB] 1,000 mg PO BID 15 Days #30 tab 12/02/18 Unknown Rx ED Physical Exam - General Limitations: No Limitations General appearance: alert, in no apparent distress - Head Head exam: Present: atraumatic, normocephalic - Eye Eye exam: Present: normal appearance - ENT ENT exam: Present: mucous membranes moist - Neck Neck exam: Present: normal inspection - Respiratory Respiratory exam: Present: normal lung sounds bilaterally. Absent: respiratory distress - Cardiovascular Cardiovascular Exam: Present: regular rate, normal rhythm. Absent: systolic murmur, diastolic murmur, rubs, gallop - GI/Abdominal GI/Abdominal exam: Present: soft, normal bowel sounds - Extremities Exam Extremities exam: Present: normal inspection - Back Exam Back exam: Present: normal inspection - Neurological Exam Neurological exam: Present: alert, oriented X3 - Psychiatric Psychiatric exam: Present: normal affect, normal mood - Skin Skin exam: Present: warm, dry, intact, normal color. Absent: rash ED Course Vital Signs 12/01/18 12/01/18 12/01/18 20:41 21:00 21:15 Temperature 98.7 F Pulse Rate 66 67 78 Respiratory 15 16 20 Rate Blood Pressure 149/89 158/94 149/89 O2 Sat by Pulse 100 100 99 Oximetry 12/01/18 12/01/18 12/01/18 21:23 21:41 21:45 Temperature Pulse Rate 85 70 Respiratory 16 22 23 Rate Blood Pressure 149/89 170/111 O2 Sat by Pulse 97 99 98 Oximetry 12/01/18 12/01/18 12/01/18 22:00 22:13 22:30 Temperature Pulse Rate 65 70 68 Respiratory 16 13 14 Rate Blood Pressure 153/84 153/84 153/89 O2 Sat by Pulse 99 98 99 Oximetry 12/01/18 12/01/18 12/02/18 23:00 23:30 00:00 Temperature Pulse Rate 64 69 60 Respiratory 18 16 20 Rate Blood Pressure 155/90 151/98 143/98 O2 Sat by Pulse 97 97 98 Oximetry 12/02/18 00:30 Temperature Pulse Rate 64 Respiratory 15 Rate Blood Pressure 158/89 O2 Sat by Pulse 97 Oximetry - Reevaluation(s) Reevaluation #1: Discussed all results with patient. Patient is stable for discharge. Patient will be discharged home. Patient agrees to plan of care. Patient given delaney nix instructions. Patient voiced understanding of discharge instructions. 12/02/18 00:03 ED Medical Decision Making - Lab Data Result diagrams: 12/01/18 20:55 12/01/18 20:55 - Radiology Data Radiology results: report reviewed PROCEDURE: CT head without contrast. TECHNIQUE: Computerized tomography of the head was performed without contrast material. CT DOSE LENGTH PRODUCT: 920.5 mGycm HISTORY: Seizure. COMPARISONS: CT head 10/21/2018. FINDINGS: The ventricles are normal in size. The lao matter and white matter appear normal. There are no mass lesions. There is no intracranial hemorrhage. The calvarium appears intact. The mastoid air cells and visualized paranasal sinuses are well aerated. IMPRESSION: Normal study. - Medical Decision Making Patient is a 53-year-old female that presents emergency with seizures. Patient states she's had multiple seizures and also has not been taking her medications for many months. Patient states she needs a refill of her medications. Patient's labs unremarkable. Patient's CT negative. Patient given IV Keppra. Patient has had any seizure activity in the ER. Patient will be given a refill of her Keppra and patient instructed to take her medications as prescribed. Patient stable for discharge. - Differential Diagnosis seizure activity. Noncompliance Critical care attestation.: If time is entered above; I have spent that time in minutes in the direct care of this critically ill patient, excluding procedure time. ED Disposition Clinical Impression: Seizure, Noncompliance Disposition: DC-01 TO HOME OR SELFCARE Is pt being admited?: No Does the pt Need Aspirin: No Condition: Stable Instructions: Epilepsy (ED), Recurrent Seizures Adult (ED) Additional Instructions: Patient to follow-up with primary care in 2-3 days. Patient to follow-up with neurologist in 2-3 days.. Patient to return to ER if condition worsens.. Patient to increase water. Patient to rest. Patient to continue all meds. Prescriptions: levETIRAcetam [Keppra TAB] 1,000 mg PO BID 15 Days #30 tab Referrals: MICHAEL WHITLOCK MD [Primary Care Provider] - 2-3 Days Time of Disposition: 00:05
[2018-12-01 21:13] LABS: Basophils # (Auto) 0.1 K/mm3 (0.0-0.1); Eosinophils % (Auto) 0.4 % (0.0-4.3); Hematocrit 39.6 % (30.3-42.9); Hemoglobin 13.7 gm/dl (10.1-14.3); Lymphocytes # (Auto) 1.2 K/mm3 (1.2-5.4); Lymphocytes % (Auto) 11.4 % (13.4-35.0); Mean Corpuscular HGB Conc 35 % (30-34); Mean Corpuscular Volume 86 fl (79-97); Monocytes # (Auto) 0.6 K/mm3 (0.0-0.8); Monocytes % (Auto) 5.7 % (0.0-7.3); Platelet Count 257 K/mm3 (140-440); Red Blood Count 4.59 M/mm3 (3.65-5.03); Red Cell Distribution Width 13.9 % (13.2-15.2)
[2018-12-01 21:17] LABS: Bacteria,Urine 1+ /HPF (Negative); Bilirubin,Urine NEG (Negative); Blood,Urine SM (Negative); Color,Urine Straw (Yellow); Protein,Urine <15 mg/dL mg/dL (Negative); Urobilinogen,Urine < 2.0 mg/dL (<2.0)
[2018-12-01 21:22] LABS: HCG Qualitative,Urine Negative (Negative)
[2018-12-01 21:24] LABS: Amphetamine Screen,Urine PRESUMPTIVE NEGATIVE; Benzodiazepines Screen,Urine PRESUMPTIVE NEGATIVE; Cocaine Screen,Urine PRESUMPTIVE NEGATIVE; Methadone Screen,Urine PRESUMPTIVE NEGATIVE; Opiate Screen,Urine PRESUMPTIVE NEGATIVE
[2018-12-01 21:29] LABS: Alanine Aminotransferase 9 units/L (7-56); Albumin 4.1 g/dL (3.9-5); BUN/Creatinine Ratio 10; Blood Urea Nitrogen 7 mg/dL (7-17); Calcium 9.4 mg/dL (8.4-10.2); Hemolysis Index 7
[2018-12-01 21:53] LABS: Cannabinoid Screen,Urine PRESUMPTIVE POSITIVE
--- NOTE | 2018-12-01 22:25 | Cat Scan Report ---
PROCEDURE: CT head without contrast. TECHNIQUE: Computerized tomography of the head was performed without contrast material. CT DOSE LENGTH PRODUCT: 920.5 mGycm HISTORY: Seizure. COMPARISONS: CT head 10/21/2018. FINDINGS: The ventricles are normal in size. The lao matter and white matter appear normal. There are no mass lesions. There is no intracranial hemorrhage. The calvarium appears intact. The mastoid air cells and visualized paranasal sinuses are well aerated. IMPRESSION: Normal study. This document is electronically signed by Tenzin Hodge MD., December 01 2018 10:23:29 PM ET
[2018-12-02 00:31] VITALS: BP 158/89
== END 2018-12-02 00:39 | disposition home or self-care (01) ==
LOC: ED 20:23
DX: G40.909 Epilepsy, unspecified, not intractable, without status epilepticus (principal); F17.200 Nicotine dependence, unspecified, uncomplicated; F12.10 Cannabis abuse, uncomplicated; J45.909 Unspecified asthma, uncomplicated; I10 Essential (primary) hypertension; Z79.1 Long term (current) use of non-steroidal anti-inflammatories (NSAID); Z79.899 Other long term (current) drug therapy
CPT/HCPCS: 36415; 70450; 80053; 80307; 81001; 81025; 85025; 96365; 99285; J1953

== ENCOUNTER 2018-12-13 00:10 | Emergency (ER) | payer OTHER ==
[2018-12-13 01:10] LABS: BUN/Creatinine Ratio 11; Blood Urea Nitrogen 9 mg/dL (7-17); Calcium 9.5 mg/dL (8.4-10.2); Hemolysis Index 4
[2018-12-13 01:16] LABS: Hematocrit 40.6 % (30.3-42.9); Hemoglobin 13.8 gm/dl (10.1-14.3); Mean Corpuscular HGB Conc 34 % (30-34); Mean Corpuscular Volume 86 fl (79-97); Platelet Count 285 K/mm3 (140-440); Red Blood Count 4.71 M/mm3 (3.65-5.03); Red Cell Distribution Width 14.1 % (13.2-15.2)
[2018-12-13] MEDS ORDERED: KEPPRA 1,000 MG/NS 0.75% 100ML 1,000 MG/100 ML BAG IV ONE (01:45)
[2018-12-13 01:48] VITALS: BP 145/91
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
== END 2018-12-13 03:25 | disposition home or self-care (01) ==
LOC: ED 00:10
DX: G40.909 Epilepsy, unspecified, not intractable, without status epilepticus (principal); I10 Essential (primary) hypertension; J45.909 Unspecified asthma, uncomplicated; F17.200 Nicotine dependence, unspecified, uncomplicated; F12.10 Cannabis abuse, uncomplicated; Z79.1 Long term (current) use of non-steroidal anti-inflammatories (NSAID); Z79.899 Other long term (current) drug therapy
CPT/HCPCS: 36415; 80048; 85027; 96374; 99284; J1953

== ENCOUNTER 2018-12-19 16:13 | Emergency (ER) | payer SELFPAY ==
[2018-12-19] MEDS ORDERED: KEPPRA PO ONE (16:44)
[2018-12-19 17:17] VITALS: BP 166/87
[2018-12-19 17:28] LABS: Basophils # (Auto) 0.1 K/mm3 (0.0-0.1); Basophils % (Auto) 1.1 % (0.0-1.8); Eosinophils % (Auto) 0.4 % (0.0-4.3); Hematocrit 41.3 % (30.3-42.9); Hemoglobin 14.1 gm/dl (10.1-14.3); Lymphocytes # (Auto) 0.9 K/mm3 (1.2-5.4); Lymphocytes % (Auto) 7.9 % (13.4-35.0); Mean Corpuscular HGB Conc 34 % (30-34); Mean Corpuscular Volume 85 fl (79-97); Monocytes # (Auto) 0.6 K/mm3 (0.0-0.8); Monocytes % (Auto) 5.6 % (0.0-7.3); Platelet Count 294 K/mm3 (140-440); Red Blood Count 4.83 M/mm3 (3.65-5.03); Red Cell Distribution Width 14.1 % (13.2-15.2)
[2018-12-19 17:50] LABS: BUN/Creatinine Ratio 14; Blood Urea Nitrogen 10 mg/dL (7-17); Calcium 9.2 mg/dL (8.4-10.2); Hemolysis Index 24
--- NOTE | 2018-12-19 18:27 | Emergency Department Report ---
ED Seizure HPI - General Chief Complaint: Seizure Stated Complaint: SEIZURE Time Seen by Provider: 12/19/18 16:38 Source: patient Mode of arrival: Ambulatory Limitations: No Limitations - History of Present Illness Initial Comments: 53 yo F reports 2 seizures today. Hx of seizures, supposed to be on Keppra, but is noncompliant. Pt has been to this ED 3 times in the last 3 weeks, each time receiving a prescription for Keppra. Pt states did not get rx filled. MD Complaint: seizure -: This afternoon Trauma: No Seizure History: known seizure disorder Place: home Possible Precipitating Event: other (med noncompliance) Associated Symptoms: denies other symptoms Treatments Prior to Arrival: none - Related Data Home Medications Medication Instructions Recorded Confirmed Last Taken Carvedilol [Coreg] 6.25 mg PO BID 02/04/17 11/20/17 02/02/17 Loratadine [Claritin] 10 mg PO DAILY 02/04/17 11/20/17 02/02/17 [place]-3 Fatty Acids/Fish Oil [Fish 1 each PO DAILY 02/04/17 11/20/17 02/02/17 Oil 1,000 mg Softgel] Previous Rx's Medication Instructions Recorded Last Taken Type levETIRAcetam [Keppra TAB] 750 mg PO BID #60 tablet 09/01/17 Unknown Rx amLODIPine [Norvasc] 5 mg PO DAILY #15 tablet 05/06/18 Unknown Rx Ibuprofen [Motrin 600 MG tab] 600 mg PO Q8H PRN #30 tablet 08/01/18 Unknown Rx Lisinopril [Zestril TAB] 40 mg PO QDAY #30 tablet 08/01/18 Unknown Rx Pravastatin Sodium [Pravastatin] 10 mg PO QHS #30 tablet 08/01/18 Unknown Rx levETIRAcetam [Keppra TAB] 1,000 mg PO BID #30 tab 12/19/18 Unknown Rx Allergies Allergy/AdvReac Type Severity Reaction Status Date / Time No Known Allergies Allergy Verified 02/06/17 08:54 ED Review of Systems ROS: Stated complaint: SEIZURE Other details as noted in HPI Comment: All other systems reviewed and negative Constitutional: denies: chills, fever Neurological: denies: headache ED Past Medical Hx - Past Medical History Hx Hypertension: Yes Hx Seizures: Yes Hx Asthma: Yes Additional medical history: hole in heart - Surgical History Past Surgical History?: No - Social History Smoking Status: Never Smoker Substance Use Type: None - Medications Home Medications: Home Medications Medication Instructions Recorded Confirmed Last Taken Type Carvedilol [Coreg] 6.25 mg PO BID 02/04/17 11/20/17 02/02/17 History Loratadine [Claritin] 10 mg PO DAILY 02/04/17 11/20/17 02/02/17 History [place]-3 Fatty Acids/Fish Oil [Fish 1 each PO DAILY 02/04/17 11/20/17 02/02/17 History Oil 1,000 mg Softgel] levETIRAcetam [Keppra TAB] 750 mg PO BID #60 tablet 09/01/17 11/20/17 Unknown Rx amLODIPine [Norvasc] 5 mg PO DAILY #15 tablet 05/06/18 Unknown Rx Ibuprofen [Motrin 600 MG tab] 600 mg PO Q8H PRN #30 tablet 08/01/18 Unknown Rx Lisinopril [Zestril TAB] 40 mg PO QDAY #30 tablet 08/01/18 Unknown Rx Pravastatin Sodium [Pravastatin] 10 mg PO QHS #30 tablet 08/01/18 Unknown Rx levETIRAcetam [Keppra TAB] 1,000 mg PO BID #30 tab 12/19/18 Unknown Rx ED Physical Exam - General Limitations: No Limitations General appearance: alert, in no apparent distress - Head Head exam: Present: atraumatic, normocephalic - Eye Eye exam: Present: normal appearance - ENT ENT exam: Present: mucous membranes moist - Neck Neck exam: Present: normal inspection - Respiratory Respiratory exam: Present: normal lung sounds bilaterally. Absent: respiratory distress - Cardiovascular Cardiovascular Exam: Present: regular rate, normal rhythm - GI/Abdominal GI/Abdominal exam: Present: soft. Absent: distended - Extremities Exam Extremities exam: Present: normal inspection - Neurological Exam Neurological exam: Present: alert, oriented X3, CN II-XII intact. Absent: motor sensory deficit - Psychiatric Psychiatric exam: Present: normal affect, normal mood - Skin Skin exam: Present: warm, dry, intact, normal color ED Course Vital Signs 12/19/18 12/19/18 12/19/18 16:29 17:03 17:10 Temperature 98.3 F Pulse Rate 71 Respiratory 16 Rate Blood Pressure 147/92 166/87 O2 Sat by Pulse 99 99 100 Oximetry ED Medical Decision Making - Lab Data Result diagrams: 12/19/18 17:11 12/19/18 17:11 - Medical Decision Making - no seizures here in the ED - labs unremarkable - Keppra given - outpt f/u advised - return precautions given - Differential Diagnosis seizures, noncompliance, electrolyte abnormality Critical care attestation.: If time is entered above; I have spent that time in minutes in the direct care of this critically ill patient, excluding procedure time. ED Disposition Clinical Impression: Noncompliance, Seizure Disposition: DC-01 TO HOME OR SELFCARE Is pt being admited?: No Condition: Stable Instructions: Recurrent Seizures Adult (ED) Prescriptions: levETIRAcetam [Keppra TAB] 1,000 mg PO BID #30 tab Referrals: [facility] [Provider Group] - 3-5 Days Time of Disposition: 18:26
== END 2018-12-19 18:59 | disposition home or self-care (01) ==
LOC: ED 16:13
DX: G40.909 Epilepsy, unspecified, not intractable, without status epilepticus (principal); I10 Essential (primary) hypertension; J45.909 Unspecified asthma, uncomplicated; Z79.1 Long term (current) use of non-steroidal anti-inflammatories (NSAID); Z79.899 Other long term (current) drug therapy
CPT/HCPCS: 36415; 80048; 85025; 99284